=== PATIENT | male | born 1975 | race African-American/Black ===

== ENCOUNTER 2020-04-23 01:17 | Inpatient (IN) | payer MEDICARE, OTHER ==
[~2020-04-23] VITALS: Ht 167.6 cm; Wt 62.5 kg
--- NOTE | 2020-04-23 01:25 | NUR ---
ED Nurse Note: Patient brought into ED by from [facility] c/o hematuria. patient presents with germain. changed into gown; attached to monitor. patient ao3; aphasic; communicates through head nodding. able to move upper extremities. sacral wound noted; photographed and uploaded. all safety measures met.
[2020-04-23 01:30] VITALS: BP 120/80
--- NOTE | 2020-04-23 01:30 | NUR ---
ED Nurse Note: iv access established. blood urine mrsa vre cre swab collected; sent down to lab.
[2020-04-23] MEDS ORDERED: ASPIRIN81 MG ORAL (01:33)
[2020-04-23] MEDS ORDERED: BACLOFEN10 MG ORAL (01:34)
[2020-04-23] MEDS ORDERED: CARVEDILOL25 MG ORAL (01:35)
[2020-04-23] MEDS ORDERED: CHLORTHALIDONE25 MG ORAL (01:35)
[2020-04-23] MEDS ORDERED: DOCUSATE SODIU100 MG ORAL (01:36)
[2020-04-23] MEDS ORDERED: DULCOLAX10 MG RC (01:37)
[2020-04-23] MEDS ORDERED: IBUPROFEN600 M1 ORAL (01:38)
[2020-04-23] MEDS ORDERED: LIPITOR20 MG ORAL (01:38)
[2020-04-23] MEDS ORDERED: MILK OF MA400 MG/51 ORAL (01:39)
[2020-04-23] MEDS ORDERED: NITROFURANTOIN100 M2 ORAL (01:39)
[2020-04-23] MEDS ORDERED: MULTIVITAMINS1 EAC8 ORAL (01:40)
[2020-04-23] MEDS ORDERED: MIRALAX17 G2 ORAL (01:40)
[2020-04-23] MEDS ORDERED: NORCO 10-325 T1 EACH ORAL (01:41)
[2020-04-23] MEDS ORDERED: NORCO 5-325 TA1 EAC1 ORAL (01:41)
[2020-04-23] MEDS ORDERED: PRO-STAT LIQUID30 ML ORAL (01:42)
[2020-04-23] MEDS ORDERED: MIRTAZAPINE30 MG ORAL (01:43)
[2020-04-23] MEDS ORDERED: TRAMADOL HCL50 MG ORAL (01:44)
[2020-04-23] MEDS ORDERED: VITAMIN C 250250 MG PO (01:45)
--- NOTE | 2020-04-23 01:48 | Emergency Room Report ---
History of Present Illness General Chief Complaint: Male Urogenital Problems Source: Medical Record, EMS Present Illness HPI This is a 45-year-old male with a history of paraplegia, chronic pain syndrome and chronic Gaviria. He presents with chief complaint of hematuria. Onset tonigh t. There is gross hematuria. Nursing staff also stated that his pain is out of control. Here patient is calm and not screaming in pain. He does have a chronic Gaviria with gross hematuria. Unable to get any other history since patient is aphasic. History is from the snf note. There is no reported fever or chills. According to snf note, he is also started on Macrobid. Allergies: Coded Allergies: No Known Allergies (Unverified , 04/23/20) COVID-19 Screening Contact w/high risk pt: No Experienced COVID-19 symptoms?: No COVID-[address] SCIENTIST: Yes - 12/2019 COVID-19 Screening: Negative COVID-19 COVID-19 Testing Source: [facility] Patient History Past Medical History: see triage record, old chart reviewed Past Surgical History: other Pertinent Family History: none Social History: Denies: smoking Immunizations: other Reviewed Nursing Documentation: PMH: Agreed; PSxH: Agreed Nursing Documentation-PMH Past Medical History: No History, Except For Hx Hypertension: Yes Hx Diabetes: Yes - type 2 Review of Systems Genitourinary: Reports: hematuria All Other Systems: limited - Patient is aphasic Physical Exam Vital Signs Date Time Temp Pulse Resp B/P (MAP) Pulse Ox O2 Delivery O2 Flow Rate FiO2 04/23/20 01:19 97.9 80 15 120/80 (93) 98 Room Air Vitals normal Sp02 EP Interpretation: reviewed, normal General Appearance: well appearing, no apparent distress, alert Head: normocephalic, atraumatic Eyes: bilateral eye PERRL, bilateral eye EOMI ENT: hearing grossly normal, normal pharynx Neck: full range of motion, supple, no meningismus Respiratory: chest non-tender, lungs clear, normal breath sounds Cardiovascular #1: regular rate, rhythm, no murmur Gastrointestinal: normal bowel sounds, non tender, no mass, no organomegaly, no bruit, non-distended Genitourinary: other - Gaviria with gross hematuria Musculoskeletal: back normal Psychiatric: mood/affect normal Medical Decision Making Diagnostic Impression: Primary Impression: Complicated UTI (urinary tract infection) Additional Impressions: Gross hematuria Paraplegia ER Course This is a patient has paraplegia and chronic Gaviria. He presents with chief complaint of gross hematuria. Urinalysis show infection. Antibiotics given. I replaced the Gaviria and put in a three-way catheter. It irrigated to clear. CT scan pending. He was on antibiotic as an outpatient. Will admit for IV antibiotics. CT/MRI/US Diagnostic Results CT/MRI/US Diagnostic Results : Imaging Test Ordered: CT abdomen pelvis Impression Read by radiologist. Constipation. Decubital ulcer. Postoperative changes. Last Vital Signs Date Time Temp Pulse Resp B/P (MAP) Pulse Ox O2 Delivery O2 Flow Rate FiO2 04/23/20 01:19 97.9 80 15 120/80 (93) 98 Room Air Status: improved Disposition: ADMITTED INPATIENT Condition: Serious Referrals: Joao Lancaster MD (PCP) Samuel Hernandez MD Apr 23, 2020 01:48
--- NOTE | 2020-04-23 02:00 | NUR ---
ED Nurse Note: per ermd order previous germain removed. inserted 3way; irrigated. pt presents with gross hematuria
[2020-04-23 02:04] LABS: APPEARANCE,URINE CLOUDY; BILIRUBIN, URINE NEGATIVE (NEGATIVE); COLOR,URINE RED; GLUCOSE, URINE (UA) NEGATIVE (NEGATIVE); KETONES,URINE 1+ (NEGATIVE); LEUKOCYTE ESTERASE ,URINE 1+ (NEGATIVE); NITRITE,URINE NEGATIVE (NEGATIVE); PH,URINE 7 (4.5-8.0); PROTEIN,URINE 4+ (NEGATIVE); UROBILINOGEN,URINE NORMAL MG/DL (0.0-1.0)
[2020-04-23 02:07] LABS: BASOPHILS % (AUTO) 1.2 % (0.0-2.0); EOSINOPHILS % (AUTO) 3.4 % (0.0-3.0); HEMATOCRIT 43.7 % (42.0-52.0); HEMOGLOBIN 14.7 G/DL (14.2-18.0); LYMPHOCYTES % (AUTO) 23.2 % (20.0-45.0); MEAN CORPUSCULAR VOLUME 87 FL (80-99); MONOCYTES % (AUTO) 7.2 % (1.0-10.0); NEUTROPHILS % (AUTO) 64.9 % (45.0-75.0); PLATELET COUNT 239 K/UL (150-450); RED BLOOD COUNT 5.04 M/UL (4.70-6.10); RED CELL DISTRIBUTION WIDTH 12.4 % (11.6-14.8); WHITE BLOOD COUNT 7.9 K/UL (4.8-10.8)
[2020-04-23 02:16] LABS: ANION GAP 6 mmol/L (5-15); BLOOD UREA NITROGEN 19 mg/dL (7-18); CALCIUM 9.2 MG/DL (8.5-10.1); CARBON DIOXIDE 33 MMOL/L (21-32); CHLORIDE 99 MMOL/L (98-107); CREATININE 1.3 MG/DL (0.55-1.30); SODIUM 138 MMOL/L (136-145)
[2020-04-23 02:19] LABS: ALANINE AMINOTRANSFERASE 18 U/L (12-78); ALBUMIN 3.1 G/DL (3.4-5.0); ALBUMIN/GLOBULIN RATIO 0.7 (1.0-2.7); ALKALINE PHOSPHATASE 85 U/L (46-116); ASPARTATE AMINO TRANSFERASE 29 U/L (15-37); BILIRUBIN,TOTAL 0.2 MG/DL (0.2-1.0)
[2020-04-23] MEDS ORDERED: Morphine Sulfate 4mg/ml Inj (IV USE ONLY) IVP ONE (02:30)
[2020-04-23] MEDS ORDERED: cefTRIAXone 1 GM in NS 55 ML IVPB ONE (02:30)
--- NOTE | 2020-04-23 02:34 | NUR ---
ED Nurse Note: patient down to imaging via gurney with tool maintenance technician
[2020-04-23 03:00] VITALS: BP 121/79
--- NOTE | 2020-04-23 03:19 | NUR ---
ED Nurse Note: drained 3 liters of blood tinged urine from germain bag.
[2020-04-23] MEDS ORDERED: Morphine Sulfate 4mg/ml Inj (IV USE ONLY) IVP PRN (03:30)
--- NOTE | 2020-04-23 03:37 | Diagnostic Imaging Report ---
EXAM: CT Abdomen and Pelvis Without Intravenous Contrast CLINICAL HISTORY: BLD TECHNIQUE: Axial computed tomography images of the abdomen and pelvis without intravenous contrast. CTDI is 4.8 mGy and DLP is 244.2 mGy-cm. One or more of the following dose reduction techniques were used: automated exposure control, adjustment of the mA and/or kV according to patient size, use of iterative reconstruction technique. COMPARISON: No relevant prior studies available. FINDINGS: Lung bases: Unremarkable. No mass. No consolidation. ABDOMEN: Liver: Unremarkable. Gallbladder and bile ducts: Unremarkable. No calcified stones. No ductal dilation. Pancreas: Unremarkable. No ductal dilation. Spleen: Unremarkable. No splenomegaly. Adrenals: Unremarkable. No mass. 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 The left kidney demonstrates compensatory hypertrophy with mild-moderate hydronephrosis. Stomach and bowel: Large volume stool in the rectal vault, measuring up to 8.8 cm, consistent with fecal impaction. Associated mild circumferential wall thickening of the rectum and distal sigmoid colon consistent with mild stercoral colitis. No perforation. Mild perirectal induration. Associated, moderate fecal retention. PELVIS: Appendix: No findings to suggest acute appendicitis. Bladder: Gaviria catheter within a decompressed, severely thickened urinary bladder measuring at least 1 cm in thickness. Evaluation limited as the bladder is decompressed and there is no contrast. No stones. Reproductive: Unremarkable as visualized. ABDOMEN and PELVIS: Intraperitoneal space: Unremarkable. No free air. No significant fluid collection. Bones/joints: Status post open reduction internal fixation of the left femur with a reverse intramedullary nail and proximal interlocking screw. Degenerative changes of the spine with dysplasia the lumbar spine and sacrum. No acute fracture. No dislocation. Soft tissues: Severe skin thickening with subcutaneous induration and large soft tissue ulceration throughout the inferior right gluteal soft tissues/medial proximal thigh soft tissues, consistent with high-grade decubitus ulcer. This should be correlated with physical exam and wound care. Vasculature: Unremarkable. No abdominal aortic aneurysm. Lymph nodes: Unremarkable. No enlarged lymph nodes. Other findings: Hyperdensity within the spinal canal, correlate for surgical intervention/inadvertent material. IMPRESSION: 1. Large volume stool in the rectal vault, measuring up to 8.8 cm, consistent with fecal impaction. Associated mild circumferential wall thickening of the rectum and distal sigmoid colon consistent with mild stercoral colitis. No perforation. Mild perirectal induration. Associated, moderate fecal retention. 2. Gaviria catheter within a decompressed, severely thickened urinary bladder measuring at least 1 cm in thickness. Evaluation limited as the bladder is decompressed and there is no contrast. 3. Status post right nephrectomy and suspected right adrenalectomy. The left kidney demonstrates compensatory hypertrophy with mild-moderate hydronephrosis. 4. Severe skin thickening with subcutaneous induration and large soft tissue ulceration throughout the inferior right gluteal soft tissues/medial proximal thigh soft tissues, consistent with high-grade decubitus ulcer. This should be correlated with physical exam and wound care. 5. Status post open reduction internal fixation of the left femur with a reverse intramedullary nail and proximal interlocking screw. 6. Hyperdensity within the spinal canal, correlate for surgical intervention/inadvertent material.
--- NOTE | 2020-04-23 03:40 | NUR ---
TRANSFER TO FLOOR: Patient transferred to MED SURG 406-1 as ordered, per LORENA VICTOR. Report given to GABRIELLE SCHMITZ. PATIENT STABLE FOR TRANSPORT. TRANSFERRED TO UNIT VIA GURNEY WITH 2 RN. BELONGINGS AND ADMISSION PACKET SENT WITH PATIENT.
--- NOTE | 2020-04-23 04:00 | NUR ---
NURSE NOTES: Received patient per laura accompanied by ER staffs. patient is awake and alert but aphasic.paraplegia. he nods and moans. on room air. no sob. with iv line on the left wrist,saline lock. with 3 way germain catheter with pink colored output with minimal blood clots. per violet RN, "she hand irrigated the germain prior to admission". wound assessment done and pictures taken. received orders from ED. bed locked and in lowest position. bed alarm on. call light and light button within easy reach. will continue plan of care.
--- NOTE | 2020-04-23 04:15 | NUR ---
NURSE NOTES: Patient screams. went to the room. patient nods that he's in pain. morphine 4mg ivp given in ED [address] webb for breakthrough and orders. per dr. webb" no breakthrough and he will take care of the orders in the morning". charge nurse made aware.
--- NOTE | 2020-04-23 06:35 | NUR ---
NURSE HAND-OFF: Important Events on Shift:ADMISSION, JADE CARE Patient Status: STABLE Diet: REGULAR DIET Pending Orders: PENDINGORDER FOR ADMISSION Pending Results/Labs: Pending MD notification:PENDING ORDER FOR ADMISSION AND JADE CARE Latest Vital Signs: Temperature 97.9 , Pulse 78 , B/P 119 /73 , Respiratory Rate 17 , O2 SAT 97 , Room Air, O2 Flow Rate . Vital Sign Comment: Latest Bennett Fall Score: 70 Fall Risk: High Risk Safety Measures: Call light Within Reach, Bed Alarm Zone 1, Side Rails Side Rails x2, Bed position Low and Locked. Fall Precautions: Yellow Socks Yellow Gown Door Sign Patient Fall Education
--- NOTE | 2020-04-23 07:51 | NUR ---
HAND-OFF: Report given to amaya mckeon.
[2020-04-23 08:00] VITALS: BP 119/70
--- NOTE | 2020-04-23 09:53 | NUR ---
CHARGE NURSE NOTE: Pt was admitted on precision lens technician 4am. Pt is in pain. No admission orders since 4 am. was called, message left. Awaiting response.
[2020-04-23] MEDS: Morphine Sulfate 2mg/ml Inj(IV/IM USE ONLY) IVP PRN ×2 (10:15→17:47)
[2020-04-23 12:00] VITALS: BP 121/83
[2020-04-23] MEDS: HYDROcodone/Acetamin 5/325 tab ORAL PRN (13:12)
--- NOTE | 2020-04-23 15:39 | NUR ---
CASE MANAGEMENT:INITIAL REVIEW 45 YR OLD MALE BIBA FROM [facility] CC;MALE UROGENITAL PROBLEMS SI;COMPLICATED UTI. GROSS HEMATURIA. 97.9 80 19 121/79 97% ON RA CO2 33 BUN 19 ALB 3.1 UA+ PROTEIN, KETONES, BLOOD, LEUKOCYTE ESTERASE, BACTERIA ABD/PELVIS CT ~ Gaviria catheter within a decompressed, severely thickened urinary bladder measuring at least 1 cm in thickness. Evaluation limited as the bladder is decompressed and there is no contrast. Status post right nephrectomy and suspected right adrenalectomy. The left kidney demonstrates compensatory hypertrophy with mild-moderate hydronephrosis. IS;ROCEPHIN IV MORPHINE IV IVF NS BOLUS ADMITTED TO MED SURG MED SURG STATUS DCP;FROM [facility]
[2020-04-23] MEDS: Piperacillin/Tazobactam 3.375 GM in NS 110 ML IVPB SCH ×2 (15:45→20:56)
[2020-04-23 16:00] VITALS: BP 100/65
--- NOTE | 2020-04-23 19:00 | NUR ---
NURSE HAND-OFF: Important Events on Shift: patient keep yelling all day and complains of pain 04/07 Patient Status: stable/ full code Diet: soft diet Pending Orders: Pending Results/Labs:am labs Pending MD notification: Latest Vital Signs: Temperature 97.4 , Pulse 83 , B/P 100 /65 , Respiratory Rate 18 , O2 SAT 98 , Room Air, O2 Flow Rate . Vital Sign Comment: stable Latest Bennett Fall Score: 70 Fall Risk: High Risk Safety Measures: Call light Within Reach, Bed Alarm Zone 1, Side Rails Side Rails x2, Bed position Low and Locked. Fall Precautions: Yellow Socks Door Sign Patient Fall Education Report given to Radha SCHMITZ, pt in stable condition.
--- NOTE | 2020-04-23 19:48 | NUR ---
NURSE NOTES: Received patient awake, paraplegic, having hematuria, yells without provocation.
[2020-04-23] MEDS: LORazepam 1mg tab ORAL PRN (20:21)
[2020-04-23 20:28] VITALS: BP 128/75
--- NOTE | 2020-04-23 20:30 | Consultation ---
DATE OF CONSULTATION: 04/23/2020 CONSULTING PHYSICIAN: Santos Mccarty MD. REFERRING PHYSICIAN: Joao Lancaster MD. REASON FOR CONSULTATION: Evaluation of hematuria and UTI. HISTORY OF PRESENT ILLNESS: This is a 45-year-old male. He has a history of paraplegia, chronic pain, and chronic Gaviria. He came in the hospital because of hematuria. Apparently, his catheter was exchanged in the ER. He had a three-way catheter placed, but he has not been on CBI. Urology evaluation is requested. Most of the history was obtained from the chart. PAST MEDICAL HISTORY: Significant for paraplegia, hypertension, diabetes. SURGICAL HISTORY: Unknown. MEDICATIONS: Current medication list was reviewed. ALLERGIES: No known drug allergies. PHYSICAL EXAMINATION: VITAL SIGNS: Temperature is 97.4, blood pressure . GENITOURINARY: Gaviria in place. Urine is blood tinged. LABORATORY DATA: BUN 19, creatinine 1.3. White count 7.9, hemoglobin 14.7. UA showed 4+ protein, too numerous to count rbc's, 2 to 4 wbc's, and moderate bacteria. DIAGNOSTIC IMAGING STUDIES: The patient had a CT scan of the abdomen and pelvis. There was mention of Gaviria catheter in bladder with severely thickened bladder wall, history of right nephrectomy, and compensatory hypertrophy of left kidney with mild to moderate hydronephrosis of the left side. IMPRESSION: 1. Hematuria. 2. Pyuria, probably colonized. 3. Proteinuria. 4. Urinary retention. 5. Neurogenic bladder. 6. Hydronephrosis, which appears to be chronic. PLAN AND DISCUSSION: The patient's Gaviria catheter is indwelling. The nursing staff had irrigated it. It is draining fairly well. His renal function is stable at this time with normal creatinine. He does have a solitary kidney with mild to moderate hydronephrosis and I presume this is chronic secondary to reflux and can be monitored. We will follow up on the results of any cultures and he is to continue with antibiotics as ordered. He can have a cystoscopy electively at a later time. Thanks for this consultation. Santos Mccarty M.D. DR: LEAH JOB#: [id number] CC:
[2020-04-24] VITALS (7 sets, daily range): BP systolic 112–141; BP diastolic 60–97
[2020-04-24] MEDS: Piperacillin/Tazobactam 3.375 GM in NS 110 ML IVPB SCH ×3 (05:03→21:16)
[2020-04-24] MEDS: LORazepam 1mg tab ORAL PRN (05:47)
[2020-04-24] MEDS: HYDROcodone/Acetamin 5/325 tab ORAL PRN (05:47)
--- NOTE | 2020-04-24 06:45 | NUR ---
NURSE NOTES: Patient pulled out his IV access, tried to reinsert another IV access but failed.
--- NOTE | 2020-04-24 06:52 | NUR ---
HAND-OFF: Report given to Xavier Gonsalez RN.
--- NOTE | 2020-04-24 07:25 | NUR ---
NURSE NOTES: Received patient in bed,awake. 3 way germain noted with bloody urine without clots. RN irrigated germain properly as ordered. Will continue to monitor. Patient is calm @ this time. No IV.Will follow up. Bed is in lowest position and locked. Call light and personnel items within reach. Body assessment done, lung sound is clear, wound dressings are intact. Will continue plan of care.
--- NOTE | 2020-04-24 08:00 | NUR ---
NURSE NOTES: germain was changed by Dr. Mccarty to regular germain. RN assisted @ bedside. Will continue to monitor.
--- NOTE | 2020-04-24 08:22 | Urology Progress Note ---
Assessment/Plan Assessment/Plan: 1. Hematuria. 2. Pyuria, probably colonized. 3. Proteinuria. 4. Urinary retention. 5. Neurogenic bladder. 6. Hydronephrosis, which appears to be chronic. monitor clinically existing germain not draining well I personally removed old germain gently dilated and placed new 18f germain irrigated better watch abx as ordered f/u on any cx's cysto electively Subjective Allergies: Coded Allergies: No Known Allergies (Unverified , 04/23/20) Subjective all noted, germain hand irrigated Objective Last 24 Hour Vital Signs Date Time Temp Pulse Resp B/P (MAP) Pulse Ox O2 Delivery O2 Flow Rate FiO2 04/24/20 06:17 75 18 134/87 98 04/24/20 06:17 97.4 04/24/20 05:47 75 18 134/87 98 04/24/20 04:00 98.0 90 20 141/97 (112) 100 04/24/20 00:14 97.4 75 18 134/87 (103) 98 04/23/20 20:55 79 18 128/75 98 04/23/20 20:28 98.0 79 18 128/75 (92) 98 04/23/20 20:21 83 18 100/65 98 04/23/20 19:58 Room Air 04/23/20 18:17 97.4 04/23/20 16:00 97.4 83 18 100/65 (77) 98 04/23/20 13:42 97.6 04/23/20 12:00 97.6 76 18 121/83 (96) 97 04/23/20 10:45 97.9 04/23/20 09:00 Room Air Intake and Output 04/23/20 04/24/20 19:00 07:00 Intake Total 600 ml 947.5 ml Output Total 1000 ml 1400 ml Balance -400 ml -452.5 ml Intake IV Total 947.5 ml Other 600 ml Output Urine Total 1000 ml 1400 ml Current Medications Medications (Trade) Dose Ordered Sig/Kathie Route PRN Reason Start Time Stop Time Status Last Admin Dose Admin Acetaminophen/ Hydrocodone Bitart ([place] 5/325) 1 tab Q4H PRN ORAL Moderate Pain (Pain Scale 4-6) 04/23/20 13:15 04/30/20 13:14 04/24/20 05:47 Escitalopram Oxalate (Lexapro) 10 mg DAILY ORAL 04/24/20 09:00 05/24/20 08:59 Lorazepam (Ativan) 2 mg Q6H PRN ORAL For Anxiety 04/23/20 14:45 04/30/20 14:44 04/24/20 05:47 Morphine Sulfate (Morphine Sulfate) 2 mg Q6H PRN IVP Severe Pain (Pain Scale 7-10) 04/23/20 10:15 04/30/20 10:14 04/23/20 17:47 Piperacillin Sod/ Tazobactam Sod 3.375 gm/Sodium Chloride 110 ml @ 27.5 mls/hr Q8H IVPB 04/23/20 15:00 04/30/20 14:59 04/24/20 05:03 Risperidone (RisperDAL) 2 mg BEDTIME ORAL 04/23/20 21:00 06/07/20 20:59 04/23/20 20:21 Sodium Chloride 1,000 ml @ 100 mls/hr Q10H IV 04/23/20 13:15 05/23/20 13:14 04/23/20 13:45 Height (Feet): 5 Height (Inches): 6.00 Weight (Pounds): 132 Objective exam stable urine is blood-tinged Santos Mccarty MD Apr 24, 2020 08:22
--- NOTE | 2020-04-24 08:51 | NUR ---
NURSE NOTES: Gaviria is draining jessica colored urine without leaking or blood clots. Will continue to monitor.
--- NOTE | 2020-04-24 09:02 | Consultation ---
History of Present Illness General Date patient seen: Apr 24, 2020 Chief Complaint: Present Illness Allergies: Coded Allergies: No Known Allergies (Unverified , 04/23/20) Medication History Scheduled Amino Acids/Protein Hydrolys (Pro-Stat Liquid), 30 ML ORAL THREE TIMES A DAY, (Reported) Ascorbic Acid/Ascorbate Sodium (Vitamin C 250 mg Tablet Chew), 250 MG PO TWICE A DAY, (Reported) Aspirin* (Aspirin*), 81 MG ORAL DAILY, (Reported) Atorvastatin Calcium* (Lipitor*), 20 MG ORAL BEDTIME, (Reported) Baclofen* (Baclofen*), 5 MG ORAL Q8HR, (Reported) Bisacodyl (Dulcolax), 10 MG RC DAILY, (Reported) Carvedilol* (Carvedilol*), 25 MG ORAL EVERY 12 HOURS, (Reported) Chlorthalidone* (Chlorthalidone*), 25 MG ORAL DAILY, (Reported) Docusate Sodium* (Docusate Sodium*), 100 MG ORAL DAILY, (Reported) Ibuprofen* (Motrin*), 600 MG ORAL FOUR TIMES A DAY, (Reported) Magnesium Hydroxide* (Milk Of Magnesia*), 30 ML ORAL DAILY, (Reported) Mirtazapine* (Remeron*), 30 MG ORAL BEDTIME, (Reported) Multivitamin With Minerals (Multivitamins With Minerals*), 1 TAB ORAL DAILY, (Reported) Nitrofurantoin Monohyd/M-Cryst* (Macrobid 100 Mg*), 100 MG ORAL EVERY 12 HOURS, (Reported) Polyethylene Glycol 3350* (Miralax*), 17 GM ORAL DAILY, (Reported) Scheduled PRN Hydrocodone Bit/Acetaminophen 10-325* ([place] 10-325*), 1 TAB ORAL Q6H PRN for For Pain, (Reported) Hydrocodone Bit/Acetaminophen 5-325* ([place] 5-325 Tablet*), 1 TAB ORAL Q6H PRN for FOR PAIN, (Reported) Tramadol Hcl* (Ultram*), 50 MG ORAL Q6H PRN for For Pain, (Reported) Patient History Healthcare decision maker Resuscitation status Advanced Directive on File Physical Exam Last 24 Hour Vital Signs Date Time Temp Pulse Resp B/P (MAP) Pulse Ox O2 Delivery O2 Flow Rate FiO2 04/24/20 06:17 75 18 134/87 98 04/24/20 06:17 97.4 04/24/20 05:47 75 18 134/87 98 04/24/20 04:00 98.0 90 20 141/97 (112) 100 04/24/20 00:14 97.4 75 18 134/87 (103) 98 04/23/20 20:55 79 18 128/75 98 04/23/20 20:28 98.0 79 18 128/75 (92) 98 04/23/20 20:21 83 18 100/65 98 04/23/20 19:58 Room Air 04/23/20 18:17 97.4 04/23/20 16:00 97.4 83 18 100/65 (77) 98 04/23/20 13:42 97.6 04/23/20 12:00 97.6 76 18 121/83 (96) 97 04/23/20 10:45 97.9 04/23/20 09:00 Room Air Intake and Output 04/23/20 04/24/20 19:00 07:00 Intake Total 600 ml 947.5 ml Output Total 1000 ml 1400 ml Balance -400 ml -452.5 ml Intake IV Total 947.5 ml Other 600 ml Output Urine Total 1000 ml 1400 ml Height (Feet): 5 Height (Inches): 6.00 Weight (Pounds): 132 Medications Current Medications Medications (Trade) Dose Ordered Sig/Kathie Route PRN Reason Start Time Stop Time Status Last Admin Dose Admin Acetaminophen/ Hydrocodone Bitart ([place] 5/325) 1 tab Q4H PRN ORAL Moderate Pain (Pain Scale 4-6) 04/23/20 13:15 04/30/20 13:14 04/24/20 05:47 Escitalopram Oxalate (Lexapro) 10 mg DAILY ORAL 04/24/20 09:00 05/24/20 08:59 04/24/20 08:46 Lorazepam (Ativan) 2 mg Q6H PRN ORAL For Anxiety 04/23/20 14:45 04/30/20 14:44 04/24/20 05:47 Morphine Sulfate (Morphine Sulfate) 2 mg Q6H PRN IVP Severe Pain (Pain Scale 7-10) 04/23/20 10:15 04/30/20 10:14 04/23/20 17:47 Piperacillin Sod/ Tazobactam Sod 3.375 gm/Sodium Chloride 110 ml @ 27.5 mls/hr Q8H IVPB 04/23/20 15:00 04/30/20 14:59 04/24/20 05:03 Risperidone (RisperDAL) 2 mg BEDTIME ORAL 04/23/20 21:00 06/07/20 20:59 04/23/20 20:21 Sodium Chloride 1,000 ml @ 100 mls/hr Q10H IV 04/23/20 13:15 05/23/20 13:14 04/23/20 13:45 Assessment/Plan Assessment/Plan: (1) Paraplegia (2) Sacral decubitus ulcer (3) Sacral pain seen dictated Guero Jean-Baptiste Apr 24, 2020 09:02
--- NOTE | 2020-04-24 09:15 | Consultation ---
DATE OF CONSULTATION: 04/23/2020 This is a 45-year-old black male with a history of opiate dependence, paraplegia, pressure ulcers, UTI, who has been for medical stabilization. The patient is refusing to talk during the evaluation. However, at times, he screams and yells, asking for pain medication. The patient continues to be psychotic, at times catatonic. He is nodding his head. PAST PSYCHIATRIC HISTORY: He denies any psychiatric hospitalization. PAST MEDICAL HISTORY: Hypertension, . ALLERGIES: No known drug allergies. SUBSTANCE ABUSE HISTORY: He is dependent on opiate pain medication. MENTAL STATUS EXAMINATION: The patient is alert, unable to communicate and evaluate him for mental status. He does my question. ASSESSMENT: [place] I Psychotic disorder, not otherwise specified. Depressive disorder, rule out opiate pain medication dependence. [place] II Deferred. [place] III As above. [place] IV Low. [place] V 25 PLAN: 1. We will start the patient on Lexapro 10 mg in the morning. 2. Risperidone 2 mg at bedtime. 3. Provide the patient with reality orientation and supportive therapy. Susan Meza M.D. DR: JUVENAL JOB#: [id number] CC:
--- NOTE | 2020-04-24 09:15 | History and Physical Report ---
DATE OF ADMISSION: 04/23/2020 HISTORY OF PRESENT ILLNESS: This is a 45-year-old male who came to the emergency room for having paraplegia, gross hematuria, complicated UTI, dehydration, depression, psychosis. Patient was also noted to have probably inguinal hernia. Patient is currently in bed, intractable pain, was given morphine. Surgery consult was obtained. Patient is currently awake. Has been not eating. PAST MEDICAL HISTORY: Significant for paraplegia, sacral decubiti, and depression. MEDICATIONS: He is taking Tylenol, vitamin C, aspirin, Lipitor, baclofen, bisacodyl, carvedilol, chlorthalidone, ibuprofen, and Remeron. ALLERGIES: NKA. FAMILY HISTORY: Noncontributory. SOCIAL HISTORY: Lives at the longterm, mostly bedbound. REVIEW OF SYSTEMS: Generalized weakness. Patient is unable to give history. PHYSICAL EXAMINATION: VITAL SIGNS: Blood pressure 100/65, pulse 83, respirations 18, temperature 97.4. HEENT: Eyes are open. NECK: Supple. CHEST: Bilaterally clear. CARDIOVASCULAR: Regular rhythm. SKIN: Dry. ABDOMEN: Soft. Has left possible inguinal hernia. GENITOURINARY: Deferred. LABORATORY AND DIAGNOSTIC DATA: White count 7.9, hemoglobin 15, hematocrit 44. Chemistry panel, BUN 19, creatinine 1.3. Sodium 138, potassium 4. Urine, 1+ ketone, 5+ blood, 1+ leukocyte esterase, and TNTC. Imaging, patient has abdominal CT and pelvis showing large volume stool in the rectal vault. Fecal impaction and circumferential volume and thickening of the rectum colitis. No perforation. Gaviria catheter . He is status post right nephrectomy, status post right adrenalectomy, severe skin thickening , large tissues, status post open reduction and internal fixation, left femur intramedullary nail. Hyperdensity within material. ASSESSMENT: 1. UTI. 2. Hematuria. 3. Hernia. 4. Severe malnutrition. 5. History of fracture of the femur. 6. Depression. PLAN: We will admit him on medical floor. Patient was given Risperdal, Zosyn, lorazepam, and hydrocodone. Add IV fluid and morphine for pain. Consider pain management consult. Surgery consult. Carson Mark Lancaster DR: MORTEZA JOB#: [id number] CC:
--- NOTE | 2020-04-24 11:01 | NUR ---
RD ASSESSMENT & RECOMMENDATIONS SEE CARE ACTIVITY FOR COMPLETE ASSESSMENT DAILY ESTIMATED NEEDS: Needs based on Advanced wounds/ 58.5kg 30-35 kcals/kg 5415-0014 total kcals 1.5-2 g protein/kg 88-117 g total protein 25-30 mL/kg 4135-7481 total fluid mLs NUTRITION DIAGNOSIS: Increased kcal/prot needs R/T wound healing as evidenced by pt admitted w/ advanced wounds, including stage 4 @ R buttock, stage 3 @ R lateral foot, stage 2 @ sacrum. CURRENT DIET:SOFT PO DIET RECOMMENDATIONS: Liberalized regular/ texture per SUPERVISOR ELECTRIC MOTOR TESTING ADDITIONAL RECOMMENDATIONS: * Calibrated bedscale wt for accurate CBW * Ensure Enlive TID w/ meals added * Wound healing: Add MVI w/ min x 1, Vit C 500mg BID, ZnSO4 220mg [id number] Sebas 1pkt BID * Monitor PO intake: pt refusing meals at this time -> consider appetite stimulant * Monitor lytes, replete as needed Addendum: 04/24/20 at [address] Additional recs: * Check A1C: h/o DM noted, BGs wnl at this time. * Consider SUPERVISOR ELECTRIC MOTOR TESTING eval for appropriate texture: pt on [facility] soft diet CUSTOMER ENGINEER
--- NOTE | 2020-04-24 11:30 | Consultation ---
DATE OF CONSULTATION: 04/24/2020 PAIN MANAGEMENT CONSULTATION CONSULTING PHYSICIAN: Alana Monique M.D. REFERRING PHYSICIAN: Carson Lancaster M.D. PHYSICIAN POWER WOOD SAWYER: Thien Bishop CHIEF COMPLAINT: Sacral pain. HISTORY OF PRESENT ILLNESS: This is a 45-year-old male who is being seen on the Med\Surg floor of [facility] for initial pain management consultation. The patient was admitted under the care of Dr. Lancaster, from nursing facility due to hematuria. The patient is paraplegic and has indwelling catheter. At this time, the patient is in bed, nonverbal, no signs of pain or distress, was started on morphine 2 mg IV every 6 hours as needed for severe pain and Telferner 5/325 one tablet every 4 hours needed for moderate pain which seems to be helping the patient's with his discomfort. Nurses reports that patient does scream at times due to pain however patient also has underlying psychiatric issues. The patient is a poor historian. Most of the information was received from chart. PAST MEDICAL HISTORY: Paraplegia, bilateral ankle contractures, muscle wasting, diabetes mellitus, bipolar disorder, depression, hypertension, dysphagia, hyperlipidemia, convulsions, psychosis. SOCIAL HISTORY: Unknown. ALLERGIES: No known drug allergies MEDICATIONS: vitamin C, aspirin, Lipitor, baclofen, Dulcolax, carvedilol, chlorthalidone, docusate, Telferner, ibuprofen, magnesium, Remeron, Macrobid, MiraLAX, Ultram. REVIEW OF SYSTEMS: Unable to obtain due the patient's mental status. PHYSICAL EXAMINATION: GENERAL: Awake. VITAL SIGNS: Blood pressure 134/87, heart rate 75, oxygen saturation 98%, respiratory rate 18, temperature 98.4 degrees Fahrenheit. HEENT: PERRLA. NECK: Range of motion is full in all directions. No tenderness to paracervical muscles. No adenopathy. LUNGS: Decreased breath sounds bilaterally. HEART: Regular. ABDOMEN: Soft and nontender. BACK: Range of motion is decreased in flexion and extension. EXTREMITIES: Upper and lower extremity range of motion is decreased due to the patient's condition. No cyanosis. No clubbing. Sensory is reduced. Reflexes are not obtainable. No adenopathy. ASSESSMENT AND PLAN: The patient is a 45-year-old male with paraplegia, sacral decubitus ulcer, sacral pain. The patient will be continued on Telferner and morphine as needed. The patient was discussed with Dr. Monique and Dr. Monique concurred. We will follow the patient. Thank you very much for the courtesy of this consultation. Alana Monique M.D. ROBIN Bishop DR: Julian JOB#: [id number] CC:
--- NOTE | 2020-04-24 12:00 | NUR ---
CHARGE NURSE NOTE: Wound care nurse at the pt's bed with her operations administrative assistant. (wound care has performed right ischial st4, right lateral foot,sacral). Pt tolerated procedure well. P200 mattress applied to the pt's bed.
--- NOTE | 2020-04-24 12:35 | NUR ---
NURSE NOTES:Skin/wound assessment Right Ischial pressure ulcer stage 4 2.6x2.3x1.7 undermining 3to6 o'clock 90% pink muscle and granulation [id number]% yellow slough ,edges macerated. Thera Honey and optifoam applied.Sacral/coccyx pressure ulcer stage 2 0.8x0.4x0.2 pink tissue no drainage noted aga wound intact .Triad and Optifoam applied. Left buttock pressure ulcer stage 2 0.7x0.3x0.2 pink wound bed no drainage triad and optifoam applied.Right lateral foot pressure ulcer stage 2 2.0x2.1x0.2 wound bed pink scant serosanguineous drainage noted, aga wound dry flakey intact skin.Air mattress overlay placed on bed during assessment.Recommend physician wound consult .Discussed plan of care with RN taking care of the patient.
--- NOTE | 2020-04-24 13:23 | NUR ---
NURSE NOTES: 2 nurses tried IV but unable to get it. RN spoke to Guero and changed morphine IV to IM Q6hr PRN. Addendum: 04/24/20 at 1325 by ALVAREZ GARZA RN Patient complains of pain RN offered norco but Patient refused to take norco stating " It does not work."
[2020-04-24] MEDS ORDERED: Morphine Sulfate 2mg/ml Inj(IV/IM USE ONLY) IM PRN (13:24)
--- NOTE | 2020-04-24 14:30 | NUR ---
CASE MANAGEMENT:REVIEW SI;COMPLICATED UTI. HEMATURIA. PYURIA. HYDRONEPHROSIS. 98.1 90 20 141/97 98% ON RA IS;MORPHINE SULFATE IM Q6 PRN ZOSYN IV Q8 NORCO PO Q4 PRN LEXAPRO PO QD MED SURG STATUS DCP;FROM [facility]
--- NOTE | 2020-04-24 14:57 | Consultation ---
History of Present Illness General Date patient seen: Apr 24, 2020 Reason for Hospitalization: Male Urogenital Problems Present Illness HPI This is a 45-year-old male with a history of paraplegia, chronic pain syndrome and chronic Germain. He presents with chief complaint of hematuria for 1-2 days and notable is gross hematuria. Nursing staff also stated that his pain is out of control and he was asking for more pain medication. He does have a chronic Germain with gross hematuria. Unable to get any other history since patient is aphasic and only minimally responsive. History is from EMR. There is no reported fever or chills. According to correction note, he is also started on Macrobid. noted to have malnutrition, prior midline scar, abd pain, and decubitus ulcers. surgery called to evaluate. Allergies: Coded Allergies: No Known Allergies (Unverified , 04/23/20) COVID-19 Screening Contact w/high risk pt: No Experienced COVID-19 symptoms?: No Medication History Scheduled Amino Acids/Protein Hydrolys (Pro-Stat Liquid), 30 ML ORAL THREE TIMES A DAY, (Reported) Ascorbic Acid/Ascorbate Sodium (Vitamin C 250 mg Tablet Chew), 250 MG PO TWICE A DAY, (Reported) Aspirin* (Aspirin*), 81 MG ORAL DAILY, (Reported) Atorvastatin Calcium* (Lipitor*), 20 MG ORAL BEDTIME, (Reported) Baclofen* (Baclofen*), 5 MG ORAL Q8HR, (Reported) Bisacodyl (Dulcolax), 10 MG RC DAILY, (Reported) Carvedilol* (Carvedilol*), 25 MG ORAL EVERY 12 HOURS, (Reported) Chlorthalidone* (Chlorthalidone*), 25 MG ORAL DAILY, (Reported) Docusate Sodium* (Docusate Sodium*), 100 MG ORAL DAILY, (Reported) Ibuprofen* (Motrin*), 600 MG ORAL FOUR TIMES A DAY, (Reported) Magnesium Hydroxide* (Milk Of Magnesia*), 30 ML ORAL DAILY, (Reported) Mirtazapine* (Remeron*), 30 MG ORAL BEDTIME, (Reported) Multivitamin With Minerals (Multivitamins With Minerals*), 1 TAB ORAL DAILY, (Reported) Nitrofurantoin Monohyd/M-Cryst* (Macrobid 100 Mg*), 100 MG ORAL EVERY 12 HOURS, (Reported) Polyethylene Glycol 3350* (Miralax*), 17 GM ORAL DAILY, (Reported) Scheduled PRN Hydrocodone Bit/Acetaminophen 10-325* (Dolphin 10-325*), 1 TAB ORAL Q6H PRN for For Pain, (Reported) Hydrocodone Bit/Acetaminophen 5-325* (Dolphin 5-325 Tablet*), 1 TAB ORAL Q6H PRN for FOR PAIN, (Reported) Tramadol Hcl* (Ultram*), 50 MG ORAL Q6H PRN for For Pain, (Reported) Patient History Limited by: medical condition History Provided By: Patient, Medical Record, PMD Healthcare decision maker Resuscitation status Advanced Directive on File Past Medical/Surgical History Past Medical/Surgical History: (1) Paraplegia (2) Gross hematuria (3) Complicated UTI (urinary tract infection) (4) Pressure ulcer (5) Psychiatric follow-up Review of Systems Review of Symptoms General ROS: no weight loss or fever Psychological ROS: no depression or mood changes, no memory loss Ophthalmic ROS: no visual changes or eye irritation ENT ROS: no nasal congestion, hearing loss, dizziness Allergy and Immunology ROS: no allergic symptoms or urticaria Hematological and Lymphatic ROS: no swollen glands, unusual bleeding or bruising Endocrine ROS: no polyuria, polydipsia, weight changes, temperature intolerance Respiratory ROS: no cough, shortness of breath, or wheezing Cardiovascular ROS: no chest pain or dyspnea on exertion Gastrointestinal ROS: denies abdominal pain, bright red blood in stool. Musculoskeletal ROS: no myalgias or arthralgias Neurological ROS: no TIA or stroke symptoms Dermatological ROS: no new or changing skin lesions, rashes or pruritis Physical Exam Physical Exam General appearance: alert, cooperative, no distress, appears stated age Head: Normocephalic, without obvious abnormality, atraumatic Eyes: conjunctivae/corneas clear. PERRL, EOM's intact. Fundi benign Throat: Lips, mucosa, and tongue normal. Teeth and gums normal Neck: supple, symmetrical, trachea midline, no adenopathy, thyroid: not enlarged, symmetric, no tenderness/mass/nodules, no carotid bruit and no JVD Lungs: clear to auscultation bilaterally Heart: regular rate and rhythm, S1, S2 normal, no murmur, click, rub or gallop Abdomen: soft, non-tender. Bowel sounds normal. No masses, no organomegaly Extremities: extremities normal, atraumatic, no cyanosis or edema Pulses: 2+ and symmetric Skin: Skin see below Neurologic: Grossly normal Last 24 Hour Vital Signs Date Time Temp Pulse Resp B/P (MAP) Pulse Ox O2 Delivery O2 Flow Rate FiO2 04/24/20 12:00 97.4 82 18 136/76 (96) 100 04/24/20 09:00 Room Air 04/24/20 08:00 98.1 66 18 137/83 (101) 100 04/24/20 06:17 75 18 134/87 98 04/24/20 06:17 97.4 04/24/20 05:47 75 18 134/87 98 04/24/20 04:00 98.0 90 20 141/97 (112) 100 04/24/20 00:14 97.4 75 18 134/87 (103) 98 04/23/20 20:55 79 18 128/75 98 04/23/20 20:28 98.0 79 18 128/75 (92) 98 04/23/20 20:21 83 18 100/65 98 04/23/20 19:58 Room Air 04/23/20 18:17 97.4 04/23/20 16:00 97.4 83 18 100/65 (77) 98 Intake and Output 04/23/20 04/24/20 19:00 07:00 Intake Total 600 ml 947.5 ml Output Total 1000 ml 1400 ml Balance -400 ml -452.5 ml Intake IV Total 947.5 ml Other 600 ml Output Urine Total 1000 ml 1400 ml Height (Feet): 5 Height (Inches): 6.00 Weight (Pounds): 132 Medications Current Medications Medications (Trade) Dose Ordered Sig/Kathie Route PRN Reason Start Time Stop Time Status Last Admin Dose Admin Acetaminophen/ Hydrocodone Bitart (Dolphin 5/325) 1 tab Q4H PRN ORAL Moderate Pain (Pain Scale 4-6) 04/23/20 13:15 04/30/20 13:14 04/24/20 05:47 Escitalopram Oxalate (Lexapro) 10 mg DAILY ORAL 04/24/20 09:00 05/24/20 08:59 04/24/20 08:46 Lorazepam (Ativan) 2 mg Q6H PRN ORAL For Anxiety 04/23/20 14:45 04/30/20 14:44 04/24/20 05:47 Morphine Sulfate (Morphine Sulfate) 2 mg Q6H PRN IM Severe Pain (Pain Scale 7-10) 04/24/20 13:24 05/01/20 13:23 04/24/20 13:42 Piperacillin Sod/ Tazobactam Sod 3.375 gm/Sodium Chloride 110 ml @ 27.5 mls/hr Q8H IVPB 04/23/20 15:00 04/30/20 14:59 04/24/20 05:03 Risperidone (RisperDAL) 2 mg BEDTIME ORAL 04/23/20 21:00 06/07/20 20:59 04/23/20 20:21 Sodium Chloride 1,000 ml @ 100 mls/hr Q10H IV 04/23/20 13:15 05/23/20 13:14 04/23/20 13:45 Assessment/Plan Problem List: (1) Pressure ulcer Assessment & Plan: Patient identified to have multiple skin concerns upon admission. he is awake and only somewhat responsive as he chooses to be. not cooperative with exam. Right Ischial pressure ulcer stage 4 noted 2.6x2.3x1.7 undermining 3to6 o'clock 90% pink muscle and granulation % yellow slough ,edges macerated. . Tx plan: Thera Honey and optifoam daily. Sacral/coccyx pressure ulcer stage 2 0.8x0.4x0.2 pink tissue no drainage noted aga wound intact Tx plan: Triad and Optifoam change q3 days and prn. Left buttock pressure ulcer stage 2 0.7x0.3x0.2 pink wound bed no drainage Tx plan: triad and optifoam change q3 days Right lateral foot pressure ulcer stage 2 2.0x2.1x0.2 wound bed pink scant serosanguineous drainage noted, aga wound dry flakey intact skin. Tx plan: triad and optifoam change q3 days Air mattress overlay placed on bed during assessment. nutritional optimization turn q2h will follow with recs thank you DAILY ESTIMATED NEEDS: Needs based on Advanced wounds/ 58.5kg 30-35 kcals/kg 6116-4950 total kcals 1.5-2 g protein/kg 88-117 g total protein 25-30 mL/kg 4012-1210 total fluid mLs NUTRITION DIAGNOSIS: Increased kcal/prot needs R/T wound healing as evidenced by pt admitted w/ advanced wounds, including stage 4 @ R buttock, stage 3 @ R lateral foot, stage 2 @ sacrum. CURRENT DIET:SOFT PO DIET RECOMMENDATIONS: Liberalized regular/ texture per SONOGRAPHY TECHNICIAN ADDITIONAL RECOMMENDATIONS: * Calibrated bedscale wt for accurate CBW * Ensure Enlive TID w/ meals added * Wound healing: Add MVI w/ min x 1, Vit C 500mg BID, ZnSO4 220mg [id number] Sebas 1pkt BID * Monitor PO intake: pt refusing meals at this time -> consider appetite stimulant * Monitor lytes, replete as needed ICD Codes: L89.90 - Pressure ulcer of unspecified site, unspecified stage SNOMED: 860232856 (2) Paraplegia ICD Codes: G82.20 - Paraplegia, unspecified SNOMED: 81669904 (3) Psychiatric follow-up ICD Codes: Z09 - Encounter for follow-up examination after completed treatment for conditions other than malignant neoplasm; Z86.59 - Personal history of other mental and behavioral disorders SNOMED: 54769333, 554658682, 551112185, 724109785 (4) Gross hematuria Assessment & Plan: as per urology germain changed cont monitor abx as per pcp ICD Codes: R31.0 - Gross hematuria SNOMED: 798900917 (5) Complicated UTI (urinary tract infection) ICD Codes: N39.0 - Urinary tract infection, site not specified SNOMED: 60565188 Parker Burr Apr 24, 2020 14:57
--- NOTE | 2020-04-24 15:20 | NUR ---
NURSE NOTES: obtained peripheral IV access on left upper arm with G22.
--- NOTE | 2020-04-24 15:58 | General Progress Note ---
Subjective Allergies: Coded Allergies: No Known Allergies (Unverified , 04/23/20) Subjective c/o hematuria bed ridden Objective Last 24 Hour Vital Signs Date Time Temp Pulse Resp B/P (MAP) Pulse Ox O2 Delivery O2 Flow Rate FiO2 04/24/20 12:00 97.4 82 18 136/76 (96) 100 04/24/20 09:00 Room Air 04/24/20 08:00 98.1 66 18 137/83 (101) 100 04/24/20 06:17 75 18 134/87 98 04/24/20 06:17 97.4 04/24/20 05:47 75 18 134/87 98 04/24/20 04:00 98.0 90 20 141/97 (112) 100 04/24/20 00:14 97.4 75 18 134/87 (103) 98 04/23/20 20:55 79 18 128/75 98 04/23/20 20:28 98.0 79 18 128/75 (92) 98 04/23/20 20:21 83 18 100/65 98 04/23/20 19:58 Room Air 04/23/20 18:17 97.4 04/23/20 16:00 97.4 83 18 100/65 (77) 98 Intake and Output 04/23/20 04/24/20 19:00 07:00 Intake Total 600 ml 947.5 ml Output Total 1000 ml 1400 ml Balance -400 ml -452.5 ml Intake IV Total 947.5 ml Other 600 ml Output Urine Total 1000 ml 1400 ml Height (Feet): 5 Height (Inches): 6.00 Weight (Pounds): 132 General Appearance: alert Neck: supple Cardiovascular: normal rate, regular rhythm Respiratory/Chest: normal breath sounds Abdomen: non tender, soft Assessment/Plan Assessment/Plan: hematuria uti paraplegia agitation urology eval cont iv abx ivf Joao Lancaster MD Apr 24, 2020 15:58
[2020-04-24] MEDS: Ascorbic Acid 500mg tab ORAL SCH (17:04)
[2020-04-24] MEDS ORDERED: NS Irrig 1000ml ONE (17:35)
--- NOTE | 2020-04-24 18:23 | NUR ---
NURSE NOTES: RN irrigated germain Q4hrs, still noted with hematuria. germain is draining.
--- NOTE | 2020-04-24 18:29 | NUR ---
NURSE HAND-OFF: Important Events on Shift: germain was changed by Dr. whitehead, still with hematuria Patient Status: stable Diet: soft diet Pending Orders: Pending Results/Labs: Pending MD notification: Latest Vital Signs: Temperature 98.8 , Pulse 81 , B/P 129 /80 , Respiratory Rate 19 , O2 SAT 96 , Room Air, O2 Flow Rate . Vital Sign Comment: Latest Bennett Fall Score: 70 Fall Risk: High Risk Safety Measures: Call light Within Reach, Bed Alarm Zone 1, Side Rails Side Rails x2, Bed position Low and Locked. Fall Precautions: Yellow Socks Door Sign Patient Fall Education Report given to Soumya and endorsed plan of care.
--- NOTE | 2020-04-24 19:21 | NUR ---
NURSE NOTES: Received patient comfortably sleeping, with indwelling germain catheter, still with hematuria.
[2020-04-24] MEDS: Morphine Sulfate 2mg/ml Inj(IV/IM USE ONLY) IVP PRN (21:16)
--- NOTE | 2020-04-25 03:00 | NUR ---
NURSE NOTES: Received patient in bed, screaming c/o pain. Will medicate as prescribed. Noted FC with gross hematuria; irrigated as ordered, clots seen. Will monitor.
[2020-04-25] MEDS: Morphine Sulfate 2mg/ml Inj(IV/IM USE ONLY) IVP PRN ×4 (03:16→21:49)
[2020-04-25 04:00] VITALS: BP 118/62
--- NOTE | 2020-04-25 04:40 | NUR ---
NURSE NOTES: Patient screamed in pain again c/o pain on his bladder. Gaviria irrigated with 40cc h2o multiple times (approx. six times) until no clots is seen. Patient verbalized relief. Will continue monitor.
--- NOTE | 2020-04-25 05:30 | NUR ---
NURSE NOTES: Right ischium wound changed and tolerated well.
[2020-04-25] MEDS: Piperacillin/Tazobactam 3.375 GM in NS 110 ML IVPB SCH ×3 (06:10→23:38)
--- NOTE | 2020-04-25 06:45 | NUR ---
NURSE NOTES: Patient was screaming in pain and asked for pain medication; pain medication still not due. Offered to irrigate germain to get rid of clots that is causing him pain, patient refused and kept demanding the pain medication. Attempted to educate patient regarding irrigating germain can relieve pain but patient still refused.
--- NOTE | 2020-04-25 07:18 | NUR ---
NURSE HAND-OFF: Important Events on Shift:[Hand irrigated multiple times, multiple clots,still hematuria. given pain medication. wound care] Patient Status: [stable, still hematuria] Diet: [soft diet] Pending Orders: [] Pending Results/Labs:[] Pending MD notification:[] Latest Vital Signs: Temperature 98.5 , Pulse 100 , B/P 118 /62 , Respiratory Rate 18 , O2 SAT 97 , Room Air, O2 Flow Rate . Vital Sign Comment: [] Latest Bennett Fall Score: 70 Fall Risk: High Risk Safety Measures: Call light Within Reach, Bed Alarm Zone 1, Side Rails Side Rails x2, Bed position Low and Locked. Fall Precautions: Yellow Socks Door Sign Patient Fall Education Report given to [Ivanna Sabillon RN].
--- NOTE | 2020-04-25 07:31 | NUR ---
NURSE NOTES: Patient awake, alert x4; on room air, no sing of distress and shortness of breath; no sing of chest pain; IV Left-For arm fluid and anti biotics runs; Gaviria in place, hematuria noticed, will flush as needed; side rails up x2, breaks engaged, bed at lowest position, call light within reach; will keep monitoring.
[2020-04-25 08:00] VITALS: BP 146/96
[2020-04-25] MEDS: Ascorbic Acid 500mg tab ORAL SCH ×3 (08:20→17:26)
[2020-04-25] MEDS: Zinc Sulfate 220mg ORAL SCH ×2 (08:20→08:31)
--- NOTE | 2020-04-25 08:31 | NUR ---
NURSE NOTES: After medications Vitamin C, Katey Sulfate, Multiple Vitamin and Lexapro, pulled out of Pexisn and prepra
--- NOTE | 2020-04-25 08:33 | NUR ---
NURSE NOTES: After medication, Vitamin C, Multi vitamin, Katey sulfate and Lexapro pulled out of pexis and prepared to give it to patient; patient refused to take it; medication wasted and witnessed by AINSLEY Montana;
--- NOTE | 2020-04-25 08:36 | NUR ---
NURSE NOTES: Gaviria flushed with 50cc Steril water, patient is in pain during flushing; will keep flushing and control the pain.
--- NOTE | 2020-04-25 08:38 | General Progress Note ---
Subjective Date patient seen: Apr 25, 2020 Time patient seen: 07:45 - am ROS Limited/Unobtainable: Yes Allergies: Coded Allergies: No Known Allergies (Unverified , 04/23/20) Subjective This is a 45 y/o male being seen on the Med/surg floor of [facility] In bed no signs of pain or distress. Non verbal. Objective Last 24 Hour Vital Signs Date Time Temp Pulse Resp B/P (MAP) Pulse Ox O2 Delivery O2 Flow Rate FiO2 04/25/20 04:00 98.5 100 18 118/62 (80) 97 04/25/20 03:46 98.4 04/24/20 23:48 98.4 102 18 112/60 (77) 97 04/24/20 21:45 98.1 04/24/20 20:02 Room Air 04/24/20 19:59 98.1 100 18 120/72 (88) 97 04/24/20 16:00 98.8 81 19 129/80 (96) 96 04/24/20 12:00 97.4 82 18 136/76 (96) 100 04/24/20 09:00 Room Air Intake and Output 04/24/20 04/25/20 19:00 07:00 Intake Total 382.5 ml 1237.5 ml Output Total 400 ml 1000 ml Balance -17.5 ml 237.5 ml Intake IV Total 382.5 ml 1237.5 ml Output Urine Total 400 ml 1000 ml # Voids 1 Height (Feet): 5 Height (Inches): 6.00 Weight (Pounds): 132 General Appearance: no apparent distress EENT: PERRL/EOMI Neck: non-tender Cardiovascular: normal rate Respiratory/Chest: decreased breath sounds Abdomen: tender Extremities: non-tender Edema: trace edema Neurologic: other - awake Assessment/Plan Assessment/Plan: (1) Paraplegia (2) Sacral decubitus ulcer (3) Sacral pain Patient to be continued on [place] and Morphine D/w Dr. Monique and he concurred. Guero Jean-Baptiste Apr 25, 2020 08:38
[2020-04-25 08:43] LABS: BASOPHILS % (AUTO) 1.7 % (0.0-2.0); EOSINOPHILS % (AUTO) 5.2 % (0.0-3.0); HEMATOCRIT 35.8 % (42.0-52.0); HEMOGLOBIN 11.6 G/DL (14.2-18.0); LYMPHOCYTES % (AUTO) 26.5 % (20.0-45.0); MEAN CORPUSCULAR VOLUME 87 FL (80-99); MONOCYTES % (AUTO) 8.4 % (1.0-10.0); NEUTROPHILS % (AUTO) 58.2 % (45.0-75.0); PLATELET COUNT 350 K/UL (150-450); RED BLOOD COUNT 4.11 M/UL (4.70-6.10); RED CELL DISTRIBUTION WIDTH 12.5 % (11.6-14.8); WHITE BLOOD COUNT 8.2 K/UL (4.8-10.8)
--- NOTE | 2020-04-25 08:44 | NUR ---
NURSE NOTES: Patient was seen by Guero KELLY of Dr. Monique for pain management. turfgrass technician asked to Guero if he can change frequency of morphine 2mg IVP Q6hrs PRN to Q4hrs since patient complains of bladder pain and screams sometimes asking for pain meds and refused to take norco stating norco does not work for him. Guero declined to change the frequency and RN was told to encourage patient to take norco. Will continue to monitor.
--- NOTE | 2020-04-25 09:05 | Urology Progress Note ---
Assessment/Plan Assessment/Plan: 1. Hematuria. 2. Pyuria, probably colonized. 3. Proteinuria. 4. Urinary retention. 5. Neurogenic bladder. 6. Hydronephrosis, which appears to be chronic. monitor clinically maintain germain, placed 04/24 hand irrigated and do PRN watch abx as ordered cysto electively Subjective Allergies: Coded Allergies: No Known Allergies (Unverified , 04/23/20) Subjective all noted, germain hand irrigated Objective Last 24 Hour Vital Signs Date Time Temp Pulse Resp B/P (MAP) Pulse Ox O2 Delivery O2 Flow Rate FiO2 04/25/20 04:00 98.5 100 18 118/62 (80) 97 04/25/20 03:46 98.4 04/24/20 23:48 98.4 102 18 112/60 (77) 97 04/24/20 21:45 98.1 04/24/20 20:02 Room Air 04/24/20 19:59 98.1 100 18 120/72 (88) 97 04/24/20 16:00 98.8 81 19 129/80 (96) 96 04/24/20 12:00 97.4 82 18 136/76 (96) 100 Intake and Output 04/24/20 04/25/20 19:00 07:00 Intake Total 382.5 ml 1237.5 ml Output Total 400 ml 1000 ml Balance -17.5 ml 237.5 ml Intake IV Total 382.5 ml 1237.5 ml Output Urine Total 400 ml 1000 ml # Voids 1 Microbiology Date/Time Source Procedure Growth Status 04/23/20 01:30 Rectum - Final NO CARBAPENEM-RESISTANT ENTEROBACTERI... Complete 04/23/20 01:30 Urine,Clean Catch Urine Culture - Final NO GROWTH AFTER 48 HOURS Complete 04/23/20 01:30 Nasal Nares MRSA Culture - Final NO METHICILLIN RESISTANT STAPH AUREUS... Complete Current Medications Medications (Trade) Dose Ordered Sig/Kathie Route PRN Reason Start Time Stop Time Status Last Admin Dose Admin Acetaminophen/ Hydrocodone Bitart ([place] 5/325) 1 tab Q4H PRN ORAL Moderate Pain (Pain Scale 4-6) 04/23/20 13:15 04/30/20 13:14 04/24/20 05:47 Ascorbic Acid (Vitamin C) 500 mg TWICE A DAY ORAL 04/24/20 18:00 05/24/20 17:59 04/24/20 17:04 Escitalopram Oxalate (Lexapro) 10 mg DAILY ORAL 04/24/20 09:00 05/24/20 08:59 04/24/20 08:46 Lorazepam (Ativan) 2 mg Q6H PRN ORAL For Anxiety 04/23/20 14:45 04/30/20 14:44 04/24/20 05:47 Morphine Sulfate (Morphine Sulfate) 2 mg Q6H PRN IVP Severe Pain (Pain Scale 7-10) 04/24/20 16:15 05/01/20 16:14 04/25/20 03:16 Multivitamins (Multivitamins) 1 tab DAILY ORAL 04/25/20 09:00 05/25/20 08:59 Piperacillin Sod/ Tazobactam Sod 3.375 gm/Sodium Chloride 110 ml @ 27.5 mls/hr Q8H IVPB 04/23/20 15:00 04/30/20 14:59 04/25/20 06:10 Risperidone (RisperDAL) 2 mg BEDTIME ORAL 04/23/20 21:00 06/07/20 20:59 04/24/20 20:30 Sodium Chloride 1,000 ml @ 100 mls/hr Q10H IV 04/23/20 13:15 05/23/20 13:14 04/25/20 01:58 Zinc Sulfate (Zinc Sulfate) 220 mg DAILY ORAL 04/25/20 09:00 05/05/20 08:59 Laboratory Tests 04/25/20 08:15: White Blood Count 8.2, Red Blood Count 4.11L, Hemoglobin 11.6L, Hematocrit 35.8L , Mean Corpuscular Volume 87, Mean Corpuscular Hemoglobin 28.2, Mean Corpuscular Hemoglobin Concent 32.4, Red Cell Distribution Width 12.5, Platelet Count 350, Mean Platelet Volume 6.0L, Neutrophils (%) (Auto) 58.2, Lymphocytes (%) (Auto) 26.5, Monocytes (%) (Auto) 8.4, Eosinophils (%) (Auto) 5.2H, Basophils (%) (Auto) 1.7, Sodium Level [Pending], Potassium Level [Pending], Chloride Level [Pending], Carbon Dioxide Level [Pending], Blood Urea Nitrogen [Pending], Creatinine [Pending], Estimat Glomerular Filtration Rate [Pending], Glucose Level [Pending], Calcium Level [Pending], Total Bilirubin [Pending], Aspartate Amino Transf (AST/SGOT) [Pending], Alanine Aminotransferase (ALT/SGPT) [Pending], Alkaline Phosphatase [Pending], Total Protein [Pending], Albumin [Pending], Globulin [Pending] Height (Feet): 5 Height (Inches): 6.00 Weight (Pounds): 132 Objective exam stable urine is blood-tinged Santos Mccarty MD Apr 25, 2020 09:05
[2020-04-25 09:31] LABS: ALANINE AMINOTRANSFERASE 14 U/L (12-78); ALBUMIN 2.6 G/DL (3.4-5.0); ALBUMIN/GLOBULIN RATIO 0.8 (1.0-2.7); ALKALINE PHOSPHATASE 70 U/L (46-116); ANION GAP 10 mmol/L (5-15); ASPARTATE AMINO TRANSFERASE 19 U/L (15-37); BILIRUBIN,TOTAL 0.3 MG/DL (0.2-1.0); BLOOD UREA NITROGEN 12 mg/dL (7-18); CARBON DIOXIDE 29 MMOL/L (21-32); CHLORIDE 103 MMOL/L (98-107); CREATININE 1.1 MG/DL (0.55-1.30); SODIUM 141 MMOL/L (136-145)
--- NOTE | 2020-04-25 09:31 | General Progress Note ---
Subjective Allergies: Coded Allergies: No Known Allergies (Unverified , 04/23/20) Subjective c/o hematuria bed ridden Objective Last 24 Hour Vital Signs Date Time Temp Pulse Resp B/P (MAP) Pulse Ox O2 Delivery O2 Flow Rate FiO2 04/25/20 08:00 98.1 83 19 146/96 (113) 98 04/25/20 04:00 98.5 100 18 118/62 (80) 97 04/25/20 03:46 98.4 04/24/20 23:48 98.4 102 18 112/60 (77) 97 04/24/20 21:45 98.1 04/24/20 20:02 Room Air 04/24/20 19:59 98.1 100 18 120/72 (88) 97 04/24/20 16:00 98.8 81 19 129/80 (96) 96 04/24/20 12:00 97.4 82 18 136/76 (96) 100 Intake and Output 04/24/20 04/25/20 19:00 07:00 Intake Total 382.5 ml 1237.5 ml Output Total 400 ml 1000 ml Balance -17.5 ml 237.5 ml Intake IV Total 382.5 ml 1237.5 ml Output Urine Total 400 ml 1000 ml # Voids 1 Laboratory Tests 04/25/20 08:15: White Blood Count 8.2, Red Blood Count 4.11L, Hemoglobin 11.6L, Hematocrit 35.8L , Mean Corpuscular Volume 87, Mean Corpuscular Hemoglobin 28.2, Mean Corpuscular Hemoglobin Concent 32.4, Red Cell Distribution Width 12.5, Platelet Count 350, Mean Platelet Volume 6.0L, Neutrophils (%) (Auto) 58.2, Lymphocytes (%) (Auto) 26.5, Monocytes (%) (Auto) 8.4, Eosinophils (%) (Auto) 5.2H, Basophils (%) (Auto) 1.7, Sodium Level [Pending], Potassium Level [Pending], Chloride Level [Pending], Carbon Dioxide Level [Pending], Blood Urea Nitrogen [Pending], Creatinine [Pending], Estimat Glomerular Filtration Rate [Pending], Glucose Level [Pending], Calcium Level [Pending], Total Bilirubin [Pending], Aspartate Amino Transf (AST/SGOT) [Pending], Alanine Aminotransferase (ALT/SGPT) [ Pending], Alkaline Phosphatase [Pending], Total Protein [Pending], Albumin [Pending], Globulin [Pending] Height (Feet): 5 Height (Inches): 6.00 Weight (Pounds): 132 General Appearance: alert Cardiovascular: regular rhythm Respiratory/Chest: lungs clear Pelvis: other - germain cath with hematuria Assessment/Plan Assessment/Plan: hematuria uti paraplegia agitation urology eval cont iv abx ivf Joao Lancaster MD Apr 25, 2020 09:31
--- NOTE | 2020-04-25 10:39 | NUR ---
NURSE NOTES: Patient's K 3; communicated MD Lancaster, waiting for order.
--- NOTE | 2020-04-25 11:20 | NUR ---
NURSE NOTES: Order received from MD Lancaster for low potassium level; 40 mEq KcL one time order received and carried out as order given;
[2020-04-25 12:00] VITALS: BP 103/54
[2020-04-25] MEDS ORDERED: Sterile Water Irrig 1000ml IRRIG ONE (13:09)
--- NOTE | 2020-04-25 15:46 | Surgery Progress Note ---
Surgery Progress Note Subjective Symptoms: worse, tolerating diet, voiding well, passing flatus, BM Objective Last 24 Hour Vital Signs Date Time Temp Pulse Resp B/P (MAP) Pulse Ox O2 Delivery O2 Flow Rate FiO2 04/25/20 12:00 97.3 77 18 103/54 (70) 96 04/25/20 10:07 98.1 04/25/20 09:00 Room Air 04/25/20 08:00 98.1 83 19 146/96 (113) 98 04/25/20 04:00 98.5 100 18 118/62 (80) 97 04/25/20 03:46 98.4 04/24/20 23:48 98.4 102 18 112/60 (77) 97 04/24/20 21:45 98.1 04/24/20 20:02 Room Air 04/24/20 19:59 98.1 100 18 120/72 (88) 97 04/24/20 16:00 98.8 81 19 129/80 (96) 96 I&O Intake and Output 04/24/20 04/25/20 19:00 07:00 Intake Total 382.5 ml 1337.5 ml Output Total 400 ml 1000 ml Balance -17.5 ml 337.5 ml Intake IV Total 382.5 ml 1337.5 ml Output Urine Total 400 ml 1000 ml # Voids 1 Dressing: saturated Cardiovascular: RSR Respiratory: decreased breath sounds Abdomen: non-tender, present bowel sounds Extremities: no edema, no tenderness Laboratory Tests Test 04/25/20 08:15 White Blood Count 8.2 K/UL (4.8-10.8) Red Blood Count 4.11 M/UL (4.70-6.10) L Hemoglobin 11.6 G/DL (14.2-18.0) L Hematocrit 35.8 % (42.0-52.0) L Mean Corpuscular Volume 87 FL (80-99) Mean Corpuscular Hemoglobin 28.2 PG (27.0-31.0) Mean Corpuscular Hemoglobin Concent 32.4 G/DL (32.0-36.0) Red Cell Distribution Width 12.5 % (11.6-14.8) Platelet Count 350 K/UL (150-450) Mean Platelet Volume 6.0 FL (6.5-10.1) L Neutrophils (%) (Auto) 58.2 % (45.0-75.0) Lymphocytes (%) (Auto) 26.5 % (20.0-45.0) Monocytes (%) (Auto) 8.4 % (1.0-10.0) Eosinophils (%) (Auto) 5.2 % (0.0-3.0) H Basophils (%) (Auto) 1.7 % (0.0-2.0) Sodium Level 141 MMOL/L (136-145) Potassium Level 3.0 MMOL/L (3.5-5.1) L Chloride Level 103 MMOL/L (98-107) Carbon Dioxide Level 29 MMOL/L (21-32) Anion Gap 10 mmol/L (5-15) Blood Urea Nitrogen 12 mg/dL (7-18) Creatinine 1.1 MG/DL (0.55-1.30) Estimat Glomerular Filtration Rate > 60 mL/min (>60) Glucose Level 85 MG/DL (74-106) Calcium Level 8.0 MG/DL (8.5-10.1) L Total Bilirubin 0.3 MG/DL (0.2-1.0) Aspartate Amino Transf (AST/SGOT) 19 U/L (15-37) Alanine Aminotransferase (ALT/SGPT) 14 U/L (12-78) Alkaline Phosphatase 70 U/L (46-116) Total Protein 5.9 G/DL (6.4-8.2) L Albumin 2.6 G/DL (3.4-5.0) L Globulin 3.3 g/dL Albumin/Globulin Ratio 0.8 (1.0-2.7) L Plan Problems: (1) Pressure ulcer Assessment & Plan: Patient identified to have multiple skin concerns upon admission. he is awake and only somewhat responsive as he chooses to be. not cooperative with exam. Right Ischial pressure ulcer stage 4 noted 2.6x2.3x1.7 undermining 3to6 o'clock 90% pink muscle and granulation % yellow slough ,edges macerated. . Tx plan: Thera Honey and optifoam daily. Sacral/coccyx pressure ulcer stage 2 0.8x0.4x0.2 pink tissue no drainage noted aga wound intact Tx plan: Triad and Optifoam change q3 days and prn. Left buttock pressure ulcer stage 2 0.7x0.3x0.2 pink wound bed no drainage Tx plan: triad and optifoam change q3 days Right lateral foot pressure ulcer stage 2 2.0x2.1x0.2 wound bed pink scant serosanguineous drainage noted, aga wound dry flakey intact skin. Tx plan: triad and optifoam change q3 days Air mattress overlay placed on bed during assessment. nutritional optimization turn q2h will follow with recs thank you DAILY ESTIMATED NEEDS: Needs based on Advanced wounds/ 58.5kg 30-35 kcals/kg 4440-7938 total kcals 1.5-2 g protein/kg 88-117 g total protein 25-30 mL/kg 6798-3909 total fluid mLs NUTRITION DIAGNOSIS: Increased kcal/prot needs R/T wound healing as evidenced by pt admitted w/ advanced wounds, including stage 4 @ R buttock, stage 3 @ R lateral foot, stage 2 @ sacrum. CURRENT DIET:SOFT PO DIET RECOMMENDATIONS: Liberalized regular/ texture per GEAR SHAPER SET UP OPERATOR ADDITIONAL RECOMMENDATIONS: * Calibrated bedscale wt for accurate CBW * Ensure Enlive TID w/ meals added * Wound healing: Add MVI w/ min x 1, Vit C 500mg BID, ZnSO4 220mg [id number] Sebas 1pkt BID * Monitor PO intake: pt refusing meals at this time -> consider appetite stimulant * Monitor lytes, replete as needed (2) Paraplegia (3) Psychiatric follow-up (4) Gross hematuria Assessment & Plan: as per urology germain changed cont monitor abx as per pcp (5) Complicated UTI (urinary tract infection) Parker Burr Apr 25, 2020 15:46
[2020-04-25 16:00] VITALS: BP 104/76
--- NOTE | 2020-04-25 16:15 | NUR ---
CASE MANAGEMENT:REVIEW SI;HYDRONEPHROSIS. HEMATURIA. PYURIA. 98.4 100 19 149/96 96% ON RA K+ 3.0 ALB 2.6 IS;K-DUR PO ONC E ZINC SULFATE PO QD VIT C PO BID MORPHINE SULFATE IV Q6 PORN ZOSYN IV Q8 IVF NS @ 100 ML/HR MED SURF STATUS DCP;FROM [facility]
[2020-04-25] MEDS: HYDROcodone/Acetamin 5/325 tab ORAL PRN ×2 (18:29→18:31)
--- NOTE | 2020-04-25 18:32 | NUR ---
NURSE NOTES: Patient asked for pain medication; RN told patient that Morphine is not due yet and offered for [place] 5/325; patient agreed to take [place]; charge nurse Xavier pulled [place] and RN prepared to give medication to patient; patient refused to take [place] 5/325 and stated that "will wait for Morphine". Medication wasted on Pyxis and on medication waste at med room. Charge nurse is aware;
--- NOTE | 2020-04-25 18:55 | NUR ---
NURSE NOTES: Patient asked to be taken outside to smoke; RN explained that this is a non smoking hospital; charge nurseXavier is aware;
--- NOTE | 2020-04-25 18:59 | NUR ---
NURSE NOTES: I communicated INSURANCE SALESPERSON Zedner regarding the pain medication that patient on, Morphine 2 MG Q6H; patient is complaining of sever pain and asking INSURANCE SALESPERSON if INSURANCE SALESPERSON wanna change the frequency of Morphine 2 mg; waiting for order.
--- NOTE | 2020-04-25 19:10 | NUR ---
NURSE NOTES: I communicated SOCIAL WORK ASSOCIATE Bondner regarding patient's pain medication, Morphine Sulfate 2 mgQ6H; patient is complaining sever pain in between and screems a lot; patient doesn't want to take [place]; SOCIAL WORK ASSOCIATE stated that doesn't change the Morphine Sulfate 2 mg medications frequency; charge nurse Xavier is aware;
[2020-04-25] MEDS ORDERED: IBUPROFEN400 MG ORAL (19:28)
--- NOTE | 2020-04-25 19:48 | NUR ---
HAND-OFF: Report given to AINSLEY Estrada. Gaviria drains hematuria;
[2020-04-25 20:00] VITALS: BP 117/69
[2020-04-25] MEDS: Cyclobenzaprine 10mg Tab ORAL PRN (20:41)
--- NOTE | 2020-04-25 21:14 | NUR ---
NURSES NOTE: Pt in bed, A/OX4, quite combative disposition. Audible moaning from the hallway noted before completing assessment. Pt states he has pain in the groin, but refuses a [place] 5/325mg and states he will wait until time for Dilaudid shot is due. Breathing is even and unlabored on 1999 VS within normal limits. Gaviria in place, to be irrigated Q4-6H. Gross hematuria noted. IV site, patent, infusing IVF fluids without incident. Pt to be turned Q2H. All due medications will be administered. Bed at lowest level. Call light within reach. Pt will continue to be monitored. Addendum: 04/25/20 at 2128 by Ingrid Elam RN Pt waiting for Morphine 2mg shot IV push.
[2020-04-26] VITALS: BP 106/72
--- NOTE | 2020-04-26 02:50 | NUR ---
NURSE HAND-OFF: Important Events on Shift:[Pt refused to be turned or flushed via [address] germain before end of shift] Patient Status: [stable] Diet: [soft diet] Pending Orders: [none] Pending Results/Labs:[none] Pending MD notification:[none] Latest Vital Signs: Temperature 98.0 , Pulse 86 , B/P 106 /72 , Respiratory Rate 18 , O2 SAT 97 , Room Air, O2 Flow Rate . Vital Sign Comment: [Within normal limits] Latest Bennett Fall Score: 70 Fall Risk: High Risk Safety Measures: Call light Within Reach, Bed Alarm Zone 1, Side Rails Side Rails x2, Bed position Low and Locked. Fall Precautions: Yellow Socks Door Sign Patient Fall Education Report given to [AINSLEY Acuña].
--- NOTE | 2020-04-26 03:00 | NUR ---
NURSE NOTES: Received report from AINSLEY Quintero. Patient is awake, alert. Iv site noted, iv fluid is infusing. No complaint of pain or discomfort noted. Skin is warm, noted with multiple dressings. Patient refused to check dressing. call light is at bedside. Will continue of care.
[2020-04-26 04:00] VITALS: BP 104/58
[2020-04-26] MEDS: Morphine Sulfate 2mg/ml Inj(IV/IM USE ONLY) IVP PRN ×2 (04:41→10:41)
[2020-04-26] MEDS: Piperacillin/Tazobactam 3.375 GM in NS 110 ML IVPB SCH ×3 (06:03→21:59)
--- NOTE | 2020-04-26 07:08 | NUR ---
NURSE HAND-OFF: Important Events on Shift:Dressings changed Patient Status: dressing change, germain catheter flushed Diet: Soft Diet Pending Orders: Pending Results/Labs: Pending MD notification: Latest Vital Signs: Temperature 98.0 , Pulse 100 , B/P 104 /58 , Respiratory Rate 18 , O2 SAT 97 , Room Air, O2 Flow Rate . Vital Sign Comment: WNL Latest Bennett Fall Score: 70 Fall Risk: High Risk Safety Measures: Call light Within Reach, Bed Alarm Zone 1, Side Rails Side Rails x2, Bed position Low and Locked. Fall Precautions: Yellow Socks Door Sign Patient Fall Education Report given to Jaret De La Fuente.
--- NOTE | 2020-04-26 07:53 | NUR ---
NURSE NOTES: Received report from Domenico Burns RN. Patient in supine position, awake, drowsy, alert, respirations at 15 breaths per minute, bed in lowest position, call light within reach, side rails up x 3, IV patent in left upper arm, no c/o pain, no SOB, in no apparent distress.
[2020-04-26 08:00] VITALS: BP 114/68
--- NOTE | 2020-04-26 08:11 | Urology Progress Note ---
Assessment/Plan Assessment/Plan: 1. Hematuria. 2. Pyuria, probably colonized. 3. Proteinuria. 4. Urinary retention. 5. Neurogenic bladder. 6. Hydronephrosis, which appears to be chronic. monitor clinically maintain germain, placed 04/24 hand irrigated and do PRN watch abx as ordered cysto electively Subjective Allergies: Coded Allergies: No Known Allergies (Unverified , 04/23/20) Subjective all noted, germain hand irrigated Objective Last 24 Hour Vital Signs Date Time Temp Pulse Resp B/P (MAP) Pulse Ox O2 Delivery O2 Flow Rate FiO2 04/26/20 04:00 98.0 100 18 104/58 (73) 97 04/26/20 00:00 98.0 86 18 106/72 (83) 97 04/25/20 21:00 Room Air 04/25/20 20:00 98.7 86 17 117/69 (85) 96 04/25/20 16:09 97.3 04/25/20 16:00 98.1 103 18 104/76 (85) 95 04/25/20 12:00 97.3 77 18 103/54 (70) 96 04/25/20 10:07 98.1 04/25/20 09:00 Room Air Intake and Output 04/25/20 04/26/20 19:00 07:00 Intake Total 992.5 ml 1095.0 ml Output Total 900 ml 700 ml Balance 92.5 ml 395.0 ml Intake Oral 240 ml IV Total 992.5 ml 855.0 ml Output Urine Total 900 ml 700 ml # Voids 1 Microbiology Date/Time Source Procedure Growth Status 04/23/20 01:30 Rectum - Final NO CARBAPENEM-RESISTANT ENTEROBACTERI... Complete 04/23/20 01:30 Urine,Clean Catch Urine Culture - Final NO GROWTH AFTER 48 HOURS Complete 04/23/20 01:30 Nasal Nares MRSA Culture - Final NO METHICILLIN RESISTANT STAPH AUREUS... Complete Current Medications Medications (Trade) Dose Ordered Sig/Kathie Route PRN Reason Start Time Stop Time Status Last Admin Dose Admin Acetaminophen/ Hydrocodone Bitart ([place] 5/325) 1 tab Q4H PRN ORAL Moderate Pain (Pain Scale 4-6) 04/23/20 13:15 04/30/20 13:14 04/24/20 05:47 Ascorbic Acid (Vitamin C) 500 mg TWICE A DAY ORAL 04/24/20 18:00 05/24/20 17:59 04/25/20 17:26 Cyclobenzaprine HCl (Flexeril) 10 mg TIDPRN PRN ORAL Muscle Spasm 04/25/20 10:00 05/02/20 09:59 04/25/20 20:41 Escitalopram Oxalate (Lexapro) 10 mg DAILY ORAL 04/24/20 09:00 05/24/20 08:59 04/24/20 08:46 Lorazepam (Ativan) 2 mg Q6H PRN ORAL For Anxiety 04/23/20 14:45 04/30/20 14:44 04/24/20 05:47 Morphine Sulfate (Morphine Sulfate) 2 mg Q4H PRN IVP Severe Pain (Pain Scale 7-10) 04/26/20 01:30 05/03/20 01:29 04/26/20 04:41 Multivitamins (Multivitamins) 1 tab DAILY ORAL 04/25/20 09:00 05/25/20 08:59 Piperacillin Sod/ Tazobactam Sod 3.375 gm/Sodium Chloride 110 ml @ 27.5 mls/hr Q8H IVPB 04/23/20 15:00 04/30/20 14:59 04/26/20 06:03 Risperidone (RisperDAL) 2 mg BEDTIME ORAL 04/23/20 21:00 06/07/20 20:59 04/25/20 20:41 Sodium Chloride 1,000 ml @ 100 mls/hr Q10H IV 04/23/20 13:15 05/23/20 13:14 04/26/20 01:15 Zinc Sulfate (Zinc Sulfate) 220 mg DAILY ORAL 04/25/20 09:00 05/05/20 08:59 Laboratory Tests 04/25/20 08:15: White Blood Count 8.2, Red Blood Count 4.11L, Hemoglobin 11.6L, Hematocrit 35.8L , Mean Corpuscular Volume 87, Mean Corpuscular Hemoglobin 28.2, Mean Corpuscular Hemoglobin Concent 32.4, Red Cell Distribution Width 12.5, Platelet Count 350, Mean Platelet Volume 6.0L, Neutrophils (%) (Auto) 58.2, Lymphocytes (%) (Auto) 26.5, Monocytes (%) (Auto) 8.4, Eosinophils (%) (Auto) 5.2H, Basophils (%) (Auto) 1.7, Sodium Level 141, Potassium Level 3.0L, Chloride Level 103, Carbon Dioxide Level 29, Anion Gap 10, Blood Urea Nitrogen 12, Creatinine 1.1, Estimat Glomerular Filtration Rate > 60, Glucose Level 85, Calcium Level 8.0L, Total Bilirubin 0.3, Aspartate Amino Transf (AST/SGOT) 19, Alanine Aminotransferase (ALT/SGPT) 14, Alkaline Phosphatase 70, Total Protein 5.9L, Albumin 2.6L, Globulin 3.3, Albumin/Globulin Ratio 0.8L Height (Feet): 5 Height (Inches): 6.00 Weight (Pounds): 132 Objective exam stable urine is blood-tinged Santos Mccarty MD Apr 26, 2020 08:11
[2020-04-26] MEDS: Zinc Sulfate 220mg ORAL SCH ×2 (09:00→09:51)
[2020-04-26] MEDS: Ascorbic Acid 500mg tab ORAL SCH ×3 (09:00→18:40)
--- NOTE | 2020-04-26 09:11 | General Progress Note ---
Subjective Date patient seen: Apr 26, 2020 Time patient seen: 08:15 - am ROS Limited/Unobtainable: Yes Allergies: Coded Allergies: No Known Allergies (Unverified , 04/23/20) Subjective This is a 45 y/o male being seen on the Med/surg floor of [facility]. Patient has been in more pain yesterday and Morphine was changed to Q4H PRN. At this time no signs of pain or distress noted. Objective Last 24 Hour Vital Signs Date Time Temp Pulse Resp B/P (MAP) Pulse Ox O2 Delivery O2 Flow Rate FiO2 04/26/20 08:00 97.6 88 19 114/68 (83) 98 04/26/20 04:00 98.0 100 18 104/58 (73) 97 04/26/20 00:00 98.0 86 18 106/72 (83) 97 04/25/20 21:00 Room Air 04/25/20 20:00 98.7 86 17 117/69 (85) 96 04/25/20 16:09 97.3 04/25/20 16:00 98.1 103 18 104/76 (85) 95 04/25/20 12:00 97.3 77 18 103/54 (70) 96 04/25/20 10:07 98.1 Intake and Output 04/25/20 04/26/20 19:00 07:00 Intake Total 992.5 ml 1095.0 ml Output Total 900 ml 700 ml Balance 92.5 ml 395.0 ml Intake Oral 240 ml IV Total 992.5 ml 855.0 ml Output Urine Total 900 ml 700 ml # Voids 1 Height (Feet): 5 Height (Inches): 6.00 Weight (Pounds): 132 Objective General Appearance: no apparent distress EENT: PERRL/EOMI Neck: non-tender Cardiovascular: normal rate Respiratory/Chest: decreased breath sounds Abdomen: tender Extremities: non-tender Edema: trace edema Neurologic: other - awake Assessment/Plan Assessment/Plan: (1) Paraplegia (2) Sacral decubitus ulcer (3) Sacral pain Patient to be continued on [place] and Morphine D/w Dr. Monique and he concurred. Guero Jean-Baptiste Apr 26, 2020 09:10
--- NOTE | 2020-04-26 09:35 | General Progress Note ---
Subjective Allergies: Coded Allergies: No Known Allergies (Unverified , 04/23/20) Subjective c/o hematuria bed ridden more awake Objective Last 24 Hour Vital Signs Date Time Temp Pulse Resp B/P (MAP) Pulse Ox O2 Delivery O2 Flow Rate FiO2 04/26/20 08:00 97.6 88 19 114/68 (83) 98 04/26/20 04:00 98.0 100 18 104/58 (73) 97 04/26/20 00:00 98.0 86 18 106/72 (83) 97 04/25/20 21:00 Room Air 04/25/20 20:00 98.7 86 17 117/69 (85) 96 04/25/20 16:09 97.3 04/25/20 16:00 98.1 103 18 104/76 (85) 95 04/25/20 12:00 97.3 77 18 103/54 (70) 96 04/25/20 10:07 98.1 Intake and Output 04/25/20 04/26/20 19:00 07:00 Intake Total 992.5 ml 1095.0 ml Output Total 900 ml 700 ml Balance 92.5 ml 395.0 ml Intake Oral 240 ml IV Total 992.5 ml 855.0 ml Output Urine Total 900 ml 700 ml # Voids 1 Height (Feet): 5 Height (Inches): 6.00 Weight (Pounds): 132 General Appearance: alert Cardiovascular: normal rate Respiratory/Chest: lungs clear Abdomen: non tender, soft Assessment/Plan Assessment/Plan: hematuria uti paraplegia agitation urology eval cont iv abx ivf id Joao Davidson MD Apr 26, 2020 09:35
[2020-04-26 12:00] VITALS: BP 117/65
--- NOTE | 2020-04-26 13:00 | NUR ---
NURSE NOTES: Left message on voicemail of Dr. Alana Monique informing that patient is complaing about pain and requesting increase in pain medication.
--- NOTE | 2020-04-26 13:18 | Surgery Progress Note ---
Surgery Progress Note Subjective Symptoms: improved, tolerating diet, passing flatus Objective Last 24 Hour Vital Signs Date Time Temp Pulse Resp B/P (MAP) Pulse Ox O2 Delivery O2 Flow Rate FiO2 04/26/20 12:00 98.6 69 20 117/65 (82) 97 04/26/20 11:11 97.6 04/26/20 09:00 Room Air 04/26/20 08:00 97.6 88 19 114/68 (83) 98 04/26/20 04:00 98.0 100 18 104/58 (73) 97 04/26/20 00:00 98.0 86 18 106/72 (83) 97 04/25/20 21:00 Room Air 04/25/20 20:00 98.7 86 17 117/69 (85) 96 04/25/20 16:09 97.3 04/25/20 16:00 98.1 103 18 104/76 (85) 95 I&O Intake and Output 04/25/20 04/26/20 19:00 07:00 Intake Total 992.5 ml 1095.0 ml Output Total 900 ml 700 ml Balance 92.5 ml 395.0 ml Intake Oral 240 ml IV Total 992.5 ml 855.0 ml Output Urine Total 900 ml 700 ml # Voids 1 Dressing: dry Wound: clean Cardiovascular: RSR Respiratory: clear Abdomen: soft, non-tender, decreased bowel sounds Extremities: no edema, no tenderness, no cyanosis Plan Problems: (1) Pressure ulcer Assessment & Plan: Patient identified to have multiple skin concerns upon admission. he is awake and only somewhat responsive as he chooses to be. not cooperative with exam. Right Ischial pressure ulcer stage 4 noted 2.6x2.3x1.7 undermining 3to6 o'clock 90% pink muscle and granulation [id number]% yellow slough ,edges macerated. . Tx plan: Thera Honey and optifoam daily. Sacral/coccyx pressure ulcer stage 2 0.8x0.4x0.2 pink tissue no drainage noted aga wound intact Tx plan: Triad and Optifoam change q3 days and prn. Left buttock pressure ulcer stage 2 0.7x0.3x0.2 pink wound bed no drainage Tx plan: triad and optifoam change q3 days Right lateral foot pressure ulcer stage 2 2.0x2.1x0.2 wound bed pink scant serosanguineous drainage noted, aga wound dry flakey intact skin. Tx plan: triad and optifoam change q3 days Air mattress overlay placed on bed during assessment. nutritional optimization turn q2h will follow with recs thank you DAILY ESTIMATED NEEDS: Needs based on Advanced wounds/ 58.5kg 30-35 kcals/kg 6966-9012 total kcals 1.5-2 g protein/kg 88-117 g total protein 25-30 mL/kg 2702-3420 total fluid mLs NUTRITION DIAGNOSIS: Increased kcal/prot needs R/T wound healing as evidenced by pt admitted w/ advanced wounds, including stage 4 @ R buttock, stage 3 @ R lateral foot, stage 2 @ sacrum. CURRENT DIET:SOFT PO DIET RECOMMENDATIONS: Liberalized regular/ texture per CHILDCARE WORKER ADDITIONAL RECOMMENDATIONS: * Calibrated bedscale wt for accurate CBW * Ensure Enlive TID w/ meals added * Wound healing: Add MVI w/ min x 1, Vit C 500mg BID, ZnSO4 220mg [id number] Sebas 1pkt BID * Monitor PO intake: pt refusing meals at this time -> consider appetite stimulant * Monitor lytes, replete as needed (2) Paraplegia (3) Psychiatric follow-up (4) Gross hematuria Assessment & Plan: as per urology germain changed cont monitor abx as per pcp ABDOMEN: Liver: Unremarkable. Gallbladder and bile ducts: Unremarkable. No calcified stones. No ductal dilation. Pancreas: Unremarkable. No ductal dilation. Spleen: Unremarkable. No splenomegaly. Adrenals: Unremarkable. No mass. 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 The left kidney demonstrates compensatory hypertrophy with mild-moderate hydronephrosis. Stomach and bowel: Large volume stool in the rectal vault, measuring up to 8.8 cm, consistent with fecal impaction. Associated mild circumferential wall thickening of the rectum and distal sigmoid colon consistent with mild stercoral colitis. No perforation. Mild perirectal induration. Associated, moderate fecal retention. PELVIS: Appendix: No findings to suggest acute appendicitis. Bladder: Germain catheter within a decompressed, severely thickened urinary bladder measuring at least 1 cm in thickness. Evaluation limited as the bladder is decompressed and there is no contrast. No stones. Reproductive: Unremarkable as visualized. ABDOMEN and PELVIS: Intraperitoneal space: Unremarkable. No free air. No significant fluid collection. Bones/joints: Status post open reduction internal fixation of the left femur with a reverse intramedullary nail and proximal interlocking screw. Degenerative changes of the spine with dysplasia the lumbar spine and sacrum. No acute fracture. No dislocation. Soft tissues: Severe skin thickening with subcutaneous induration and large soft tissue ulceration throughout the inferior right gluteal soft tissues/medial proximal thigh soft tissues, consistent with high-grade decubitus ulcer. This should be correlated with physical exam and wound care. Vasculature: Unremarkable. No abdominal aortic aneurysm. Lymph nodes: Unremarkable. No enlarged lymph nodes. Other findings: Hyperdensity within the spinal canal, correlate for surgical intervention/inadvertent material. IMPRESSION: 1. Large volume stool in the rectal vault, measuring up to 8.8 cm, consistent with fecal impaction. Associated mild circumferential wall thickening of the rectum and distal sigmoid colon consistent with mild stercoral colitis. No perforation. Mild perirectal induration. Associated, moderate fecal retention. 2. Germain catheter within a decompressed, severely thickened urinary bladder measuring at least 1 cm in thickness. Evaluation limited as the bladder is decompressed and there is no contrast. 3. Status post right nephrectomy and suspected right adrenalectomy. The left kidney demonstrates compensatory hypertrophy with mild-moderate hydronephrosis. 4. Severe skin thickening with subcutaneous induration and large soft tissue ulceration throughout the inferior right gluteal soft tissues/medial proximal thigh soft tissues, consistent with high-grade decubitus ulcer. This should be correlated with physical exam and wound care. 5. Status post open reduction internal fixation of the left femur with a reverse intramedullary nail and proximal interlocking screw. 6. Hyperdensity within the spinal canal, correlate for surgical intervention/inadvertent material. (5) Complicated UTI (urinary tract infection) Parker Burr Apr 26, 2020 13:18
[2020-04-26] MEDS: LORazepam 1mg tab ORAL PRN (13:32)
--- NOTE | 2020-04-26 14:44 | NUR ---
CASE MANAGEMENT:REVIEW SI; HYDRONEPHROSIS. HEMATURIA. PYURIA. 98.6 88 20 120/67 97% ON RA K+ 3.0 ALB 2.6 IS;MORPHINE SULFATE IV Q4 ZOSYN IV Q8 INF NS @ 100 ML/HR ZINC PO QD VIT C PO BID MED SURG STATUS DCP;[facility]
[2020-04-26] MEDS: Hydromorphone 0.5mg/0.5ml inj IVP PRN ×2 (15:23→20:47)
[2020-04-26 16:00] VITALS: BP 121/63
--- NOTE | 2020-04-26 16:00 | NUR ---
NURSE NOTES: Irrigating every four hours, a few clots during initial irrigation, then the clots clear, however, color remains dumont red.
[2020-04-26] MEDS: Cyclobenzaprine 10mg Tab ORAL PRN (18:40)
--- NOTE | 2020-04-26 19:07 | NUR ---
NURSE NOTES: Irrigated Gaviria catheter, blood clots removed, urine remains dumont colored.
--- NOTE | 2020-04-26 19:42 | NUR ---
NURSE HAND-OFF: Important Events on Shift:Patient Gaviria catheter irrigation [id number], clots, clears to dumont colored urine (bright red). Pain medicine changed from morphine to dilaudid. Patient Status: Stable. Diet: Soft, poor appetite. Pending Orders: N/A Pending Results/Labs:N/A Pending MD notification:N/A Latest Vital Signs: Temperature 98.3 , Pulse 63 , B/P 121 /63 , Respiratory Rate 20 , O2 SAT 97 , Room Air, O2 Flow Rate . Vital Sign Comment: Stable Latest Bennett Fall Score: 70 Fall Risk: High Risk Safety Measures: Call light Within Reach, Bed Alarm Zone 1, Side Rails Side Rails x2, Bed position Low and Locked. Fall Precautions: Yellow Socks Door Sign Patient Fall Education Report given to Domenico Burns RN.
--- NOTE | 2020-04-26 20:02 | NUR ---
NURSE NOTES: Patient is awake, alert, able to make needs known. Kept clean and comfortable. Provided safe environment. Complained of pain will give PRn pain medication. Iv site noted, iv infusing as ordered. Noted with multiple dressings, intact. bed in low and locked position. Respiration is even and unlabored. Gaviria catheter noted, draining, with blood tinged color. call light is at bedside. Will continue plan of care.
[2020-04-26 20:53] VITALS: BP 129/83
--- NOTE | 2020-04-26 23:16 | Psychiatric Progress Note ---
Psychiatry Progress Note Psychiatry Progress Note Medications Current Medications Medications (Trade) Dose Ordered Sig/Kathie Route PRN Reason Start Time Stop Time Status Last Admin Dose Admin Acetaminophen/ Hydrocodone Bitart ([place] 5/325) 1 tab Q4H PRN ORAL Moderate Pain (Pain Scale 4-6) 04/23/20 13:15 04/30/20 13:14 04/24/20 05:47 Ascorbic Acid (Vitamin C) 500 mg TWICE A DAY ORAL 04/24/20 18:00 05/24/20 17:59 04/26/20 18:40 Cyclobenzaprine HCl (Flexeril) 10 mg TIDPRN PRN ORAL Muscle Spasm 04/25/20 10:00 05/02/20 09:59 04/26/20 18:40 Escitalopram Oxalate (Lexapro) 10 mg DAILY ORAL 04/24/20 09:00 05/24/20 08:59 04/24/20 08:46 Hydromorphone HCl (Dilaudid) 0.5 mg Q4H PRN IVP Pain Scale (7-10) 04/26/20 14:45 05/03/20 14:44 04/26/20 20:47 Lorazepam (Ativan) 2 mg Q6H PRN ORAL For Anxiety 04/23/20 14:45 04/30/20 14:44 04/26/20 13:32 Multivitamins (Multivitamins) 1 tab DAILY ORAL 04/25/20 09:00 05/25/20 08:59 Piperacillin Sod/ Tazobactam Sod 3.375 gm/Sodium Chloride 110 ml @ 27.5 mls/hr Q8H IVPB 04/23/20 15:00 04/30/20 14:59 04/26/20 21:59 Risperidone (RisperDAL) 2 mg BEDTIME ORAL 04/23/20 21:00 06/07/20 20:59 04/26/20 20:47 Sodium Chloride 1,000 ml @ 100 mls/hr Q10H IV 04/23/20 13:15 05/23/20 13:14 04/26/20 20:47 Zinc Sulfate (Zinc Sulfate) 220 mg DAILY ORAL 04/25/20 09:00 05/05/20 08:59 Neurological/Psychiatric: Reports: anxiety, depressed, emotional problems Allergies: Coded Allergies: No Known Allergies (Unverified , 04/23/20) Objective Data Height (Feet): 5 Height (Inches): 6.00 Weight (Pounds): 132 General Appearance: alert, confused, agitated Assessment/Plan Assessment/Plan: [place] I Psychotic disorder, not otherwise specified. Depressive disorder, rule out opiate pain medication dependence. [place] II Deferred. [place] III As above. [place] IV Low. [place] V 25 PLAN: 1. We will start the patient on Lexapro 10 mg in the morning. 2. Risperidone 2 mg at bedtime. 3. Provide the patient with reality orientation and supportive therapy. Susan Meza MD Apr 26, 2020 23:16
[2020-04-27] VITALS: BP 113/65
[2020-04-27] MEDS: Hydromorphone 0.5mg/0.5ml inj IVP PRN ×7 (00:32→23:50)
--- NOTE | 2020-04-27 00:44 | NUR ---
NURSE NOTES: Given Prn pain medication, generalized pain, will reassess. Gaviria catheter was flushed. Call light is at bedside. Will continue plan of care.
[2020-04-27 04:00] VITALS: BP 106/56
--- NOTE | 2020-04-27 04:25 | NUR ---
NURSE NOTES: Patient complained of back pain, given PRN pain medication, will reassess. Gaviria catheter flushed. Call light is at bedside. Will continue plan of care.
[2020-04-27] MEDS: Piperacillin/Tazobactam 3.375 GM in NS 110 ML IVPB SCH ×3 (06:20→23:30)
--- NOTE | 2020-04-27 07:12 | NUR ---
NURSE HAND-OFF: Important Events on Shift:Gaviria flushed Patient Status: WNL Diet: Soft Diet Pending Orders: Pending Results/Labs: Pending MD notification: Latest Vital Signs: Temperature 98.7 , Pulse 86 , B/P 106 /56 , Respiratory Rate 20 , O2 SAT 99 , Room Air, O2 Flow Rate . Vital Sign Comment: WNL Latest Bennett Fall Score: 70 Fall Risk: High Risk Safety Measures: Call light Within Reach, Bed Alarm Zone 1, Side Rails Side Rails x2, Bed position Low and Locked. Fall Precautions: Yellow Socks Door Sign Patient Fall Education Report given to AINSLEY Putnam.
--- NOTE | 2020-04-27 07:57 | NUR ---
NURSE NOTES:received am report. pt is sitting up in the bed and eating breakfast. pt is alert and awake, responds verbally. f/c inplace, drains bright red bloody urine. denies any bladder pain and spasms at this time. will flush f/c as ordered. no acute distress noted at this time. call light is placed within reach, will follow plan of care.
[2020-04-27 08:00] VITALS: BP 138/78
--- NOTE | 2020-04-27 09:14 | CDS Physician Query ---
Clarification is required for compliance, coding accuracy, and to reflect severity of illness for this patient Dear Dr. Carson Lancaster Date: 04/27/2020 Vp Organizational Development/CDS Name: Chata White Clinical Documentation sates: HNP - 45-year-old male who came to the emergency room for having paraplegia, gross hematuria, complicated UTI, dehydration, depression, psychosis. 04/26 surgery note: Assessment & Plan: as per urology germain changed cont monitor Treatment: IV piperacillin-tazobactam Please respond to the following question: Is there a diagnosis specific to these symptoms or values? If so please state below. PHYSICIAN RESPONSE: [] Catheter associated UTI [] UTI unrelated to catheter [] Other: [] Unknown Present on Admission: [] Yes [] No [] Clinically Undetermined Physician signature Date Please also document in your Progress Notes and/or Discharge Summary and indicate if the condition was present on admission. MELIDA
[2020-04-27] MEDS: Ascorbic Acid 500mg tab ORAL SCH ×2 (09:16→17:17)
[2020-04-27] MEDS: Zinc Sulfate 220mg ORAL SCH (09:16)
--- NOTE | 2020-04-27 09:22 | General Progress Note ---
Subjective Date patient seen: Apr 27, 2020 Time patient seen: 08:15 - am ROS Limited/Unobtainable: Yes Allergies: Coded Allergies: No Known Allergies (Unverified , 04/23/20) Subjective This is a 45 y/o male being seen on the Med/surg floor of [facility]. Patients pain was severe and noted tolerated on the Morphine and it was changed to Dilaudid 0.5mg IV Q4H PRN. Pain has been better tolerated. No new changes. Objective Last 24 Hour Vital Signs Date Time Temp Pulse Resp B/P (MAP) Pulse Ox O2 Delivery O2 Flow Rate FiO2 04/27/20 08:00 98.0 82 20 138/78 (98) 99 04/27/20 04:00 98.7 86 20 106/56 (73) 99 04/27/20 00:00 97.1 62 20 113/65 (81) 98 04/26/20 21:00 Room Air 04/26/20 20:53 98.3 73 24 129/83 (98) 100 04/26/20 16:00 98.3 63 20 121/63 (82) 97 04/26/20 15:53 98.6 04/26/20 14:02 68 18 120/67 97 04/26/20 13:32 69 18 119/66 97 04/26/20 12:00 98.6 69 20 117/65 (82) 97 04/26/20 11:11 97.6 Intake and Output 04/26/20 04/27/20 19:00 07:00 Intake Total 1732.5 ml 210 ml Output Total 600 ml 800 ml Balance 1132.5 ml -590 ml Intake Oral 240 ml 210 ml IV Total 1492.5 ml Output Urine Total 600 ml 800 ml # Voids 2 # Bowel Movements 1 Height (Feet): 5 Height (Inches): 6.00 Weight (Pounds): 132 Objective General Appearance: no apparent distress EENT: PERRL/EOMI Neck: non-tender Cardiovascular: normal rate Respiratory/Chest: decreased breath sounds Abdomen: tender Extremities: non-tender Edema: trace edema Neurologic: other - awake Assessment/Plan Assessment/Plan: (1) Paraplegia (2) Sacral decubitus ulcer (3) Sacral pain Patient to be continued on Lindsay and Dilaudid D/w Dr. Monique and he concurred. Guero Jean-Baptiste Apr 27, 2020 09:22
--- NOTE | 2020-04-27 09:47 | NUR ---
RD ASSESSMENT & RECOMMENDATIONS SEE CARE ACTIVITY FOR COMPLETE ASSESSMENT DAILY ESTIMATED NEEDS: Needs based on Advanced wounds/ 58.5kg 30-35 kcals/kg 0692-4856 total kcals 1.5-2 g protein/kg 88-117 g total protein 25-30 mL/kg 8545-8029 total fluid mLs NUTRITION DIAGNOSIS: Increased kcal/prot needs R/T wound healing as evidenced byt pt admitted w/ advanced wounds, including stage 4 @ R buttock, stage 3 @ R lateral foot, stage 2 @ sacrum. CURRENT DIET:SOFT PO DIET RECOMMENDATIONS: Liberalized regular/ texture per BULLET SLUG CASTING MACHINE OPERATOR ADDITIONAL RECOMMENDATIONS: * Calibrated bedscale wt for accurate CBW * Ensure Enlive BID w/ meals added- increase w/ good acceptance * Wound healing: Continue MVI, Vit C and ZnSO4 Sebas 1pkt BID * Monitor PO intake: pt refusing meals at this time, rec appetite stimulant * Check A1C: h/o DM noted, BGs wnl at this time. * Consider BULLET SLUG CASTING MACHINE OPERATOR eval for appropriate texture- on mech soft SUPERVISOR DECORATING
--- NOTE | 2020-04-27 09:56 | Urology Progress Note ---
Assessment/Plan Assessment/Plan: 1. Hematuria. 2. Pyuria, probably colonized. 3. Proteinuria. 4. Urinary retention. 5. Neurogenic bladder. 6. Hydronephrosis, which appears to be chronic. monitor clinically maintain germain, placed 04/24 hand irrigated and do PRN watch abx as ordered cysto electively Subjective Allergies: Coded Allergies: No Known Allergies (Unverified , 04/23/20) Subjective all noted, germain hand irrigated Objective Last 24 Hour Vital Signs Date Time Temp Pulse Resp B/P (MAP) Pulse Ox O2 Delivery O2 Flow Rate FiO2 04/27/20 08:00 98.0 82 20 138/78 (98) 99 04/27/20 04:00 98.7 86 20 106/56 (73) 99 04/27/20 00:00 97.1 62 20 113/65 (81) 98 04/26/20 21:00 Room Air 04/26/20 20:53 98.3 73 24 129/83 (98) 100 04/26/20 16:00 98.3 63 20 121/63 (82) 97 04/26/20 15:53 98.6 04/26/20 14:02 68 18 120/67 97 04/26/20 13:32 69 18 119/66 97 04/26/20 12:00 98.6 69 20 117/65 (82) 97 04/26/20 11:11 97.6 Intake and Output 04/26/20 04/27/20 19:00 07:00 Intake Total 1732.5 ml 210 ml Output Total 600 ml 800 ml Balance 1132.5 ml -590 ml Intake Oral 240 ml 210 ml IV Total 1492.5 ml Output Urine Total 600 ml 800 ml # Voids 2 # Bowel Movements 1 Microbiology Date/Time Source Procedure Growth Status 04/23/20 01:30 Rectum - Final NO CARBAPENEM-RESISTANT ENTEROBACTERI... Complete 04/23/20 01:30 Urine,Clean Catch Urine Culture - Final NO GROWTH AFTER 48 HOURS Complete 04/23/20 01:30 Nasal Nares MRSA Culture - Final NO METHICILLIN RESISTANT STAPH AUREUS... Complete Current Medications Medications (Trade) Dose Ordered Sig/Kathie Route PRN Reason Start Time Stop Time Status Last Admin Dose Admin Acetaminophen/ Hydrocodone Bitart ([place] 5/325) 1 tab Q4H PRN ORAL Breakthrough Pain 04/23/20 13:15 11/2/20 13:14 04/24/20 05:47 Ascorbic Acid (Vitamin C) 500 mg TWICE A DAY ORAL 04/24/20 18:00 05/24/20 17:59 04/27/20 09:16 Cyclobenzaprine HCl (Flexeril) 10 mg TIDPRN PRN ORAL Muscle Spasm 04/25/20 10:00 05/02/20 09:59 04/26/20 18:40 Escitalopram Oxalate (Lexapro) 10 mg DAILY ORAL 04/24/20 09:00 05/24/20 08:59 04/27/20 09:16 Hydromorphone HCl (Dilaudid) 0.5 mg Q4H PRN IVP Pain Scale (7-10) 04/26/20 14:45 05/03/20 14:44 04/27/20 09:16 Lorazepam (Ativan) 2 mg Q6H PRN ORAL For Anxiety 04/23/20 14:45 04/30/20 14:44 04/26/20 13:32 Multivitamins (Multivitamins) 1 tab DAILY ORAL 04/25/20 09:00 05/25/20 08:59 04/27/20 09:16 Piperacillin Sod/ Tazobactam Sod 3.375 gm/Sodium Chloride 110 ml @ 27.5 mls/hr Q8H IVPB 04/23/20 15:00 04/30/20 14:59 04/27/20 06:20 Risperidone (RisperDAL) 2 mg BEDTIME ORAL 04/23/20 21:00 06/07/20 20:59 04/26/20 20:47 Sodium Chloride 1,000 ml @ 100 mls/hr Q10H IV 04/23/20 13:15 05/23/20 13:14 04/27/20 06:22 Zinc Sulfate (Zinc Sulfate) 220 mg DAILY ORAL 04/25/20 09:00 05/05/20 08:59 04/27/20 09:16 Height (Feet): 5 Height (Inches): 6.00 Weight (Pounds): 132 Objective exam stable urine is blood-tinged Santos Mccarty MD Apr 27, 2020 09:56
[2020-04-27 12:00] VITALS: BP 112/66
--- NOTE | 2020-04-27 12:27 | NUR ---
NURSE NOTES:pt ate 25% breakfast in AM, and refuses to eat lunch. encouraged pt to eat adequate meal. educated pt about the benefits of eating adequate percentage meal. educated the risk of weight loss. pt is non-compliant. pt is requesting Dilaudid. Dilaudid is not due as ordered. offered break-through pain medication, [place]; pt refuses. encouraged pt to watch TV to distract pain until Dilaudid is due. call light placed within reach.
--- NOTE | 2020-04-27 15:07 | General Progress Note ---
Subjective Allergies: Coded Allergies: No Known Allergies (Unverified , 04/23/20) Subjective c/o hematuria bed ridden more awake poor po intake Objective Last 24 Hour Vital Signs Date Time Temp Pulse Resp B/P (MAP) Pulse Ox O2 Delivery O2 Flow Rate FiO2 04/27/20 12:00 98.2 84 20 112/66 (81) 99 04/27/20 09:00 Room Air 04/27/20 08:00 98.0 82 20 138/78 (98) 99 04/27/20 04:00 98.7 86 20 106/56 (73) 99 04/27/20 00:00 97.1 62 20 113/65 (81) 98 04/26/20 21:00 Room Air 04/26/20 20:53 98.3 73 24 129/83 (98) 100 04/26/20 16:00 98.3 63 20 121/63 (82) 97 04/26/20 15:53 98.6 Intake and Output 04/26/20 04/27/20 19:00 07:00 Intake Total 1732.5 ml 210 ml Output Total 600 ml 800 ml Balance 1132.5 ml -590 ml Intake Oral 240 ml 210 ml IV Total 1492.5 ml Output Urine Total 600 ml 800 ml # Voids 2 # Bowel Movements 1 Height (Feet): 5 Height (Inches): 6.00 Weight (Pounds): 132 General Appearance: alert Neck: supple Cardiovascular: regular rhythm Respiratory/Chest: normal breath sounds Abdomen: normal bowel sounds, soft Extremities: non-tender Assessment/Plan Assessment/Plan: hematuria uti paraplegia agitation failure of thrive add magcee urology eval cont iv abx ivf id eval dc plan to [facility] Joao Lancaster MD Apr 27, 2020 15:07
--- NOTE | 2020-04-27 15:36 | Psychiatric Progress Note ---
Psychiatry Progress Note Psychiatry Progress Note Medications Current Medications Medications (Trade) Dose Ordered Sig/Kathie Route PRN Reason Start Time Stop Time Status Last Admin Dose Admin Acetaminophen/ Hydrocodone Bitart ([place] 5/325) 1 tab Q4H PRN ORAL Breakthrough Pain 04/23/20 13:15 04/30/20 13:14 04/24/20 05:47 Ascorbic Acid (Vitamin C) 500 mg TWICE A DAY ORAL 04/24/20 18:00 05/24/20 17:59 04/27/20 09:16 Cyclobenzaprine HCl (Flexeril) 10 mg TIDPRN PRN ORAL Muscle Spasm 04/25/20 10:00 05/02/20 09:59 04/26/20 18:40 Escitalopram Oxalate (Lexapro) 10 mg DAILY ORAL 04/24/20 09:00 05/24/20 08:59 04/27/20 09:16 Hydromorphone HCl (Dilaudid) 0.5 mg Q4H PRN IVP Pain Scale (7-10) 04/26/20 14:45 05/03/20 14:44 04/27/20 13:17 Lorazepam (Ativan) 2 mg Q6H PRN ORAL For Anxiety 04/23/20 14:45 04/30/20 14:44 04/26/20 13:32 Multivitamins (Multivitamins) 1 tab DAILY ORAL 04/25/20 09:00 05/25/20 08:59 04/27/20 09:16 Piperacillin Sod/ Tazobactam Sod 3.375 gm/Sodium Chloride 110 ml @ 27.5 mls/hr Q8H IVPB 04/23/20 15:00 04/30/20 14:59 04/27/20 15:02 Risperidone (RisperDAL) 2 mg BEDTIME ORAL 04/23/20 21:00 06/07/20 20:59 04/26/20 20:47 Sodium Chloride 1,000 ml @ 100 mls/hr Q10H IV 04/23/20 13:15 05/23/20 13:14 04/27/20 06:22 Zinc Sulfate (Zinc Sulfate) 220 mg DAILY ORAL 04/25/20 09:00 05/05/20 08:59 04/27/20 09:16 Neurological/Psychiatric: Reports: anxiety, depressed, emotional problems Allergies: Coded Allergies: No Known Allergies (Unverified , 04/23/20) Objective Data Height (Feet): 5 Height (Inches): 6.00 Weight (Pounds): 132 General Appearance: alert Assessment/Plan [place] I: [place] I Psychotic disorder, not otherwise specified. Depressive disorder, rule out opiate pain medication dependence. [place] II Deferred. [place] III As above. [place] IV Low. [place] V 25 PLAN: 1. We will start the patient on Lexapro 10 mg in the morning. 2. Risperidone 2 mg at bedtime. 3. Provide the patient with reality orientation and supportive therapy. Status Narrative [place] I Psychotic disorder, not otherwise specified. Depressive disorder, rule out opiate pain medication dependence. [place] II Deferred. [place] III As above. [place] IV Low. [place] V 25 PLAN: 1. We will start the patient on Lexapro 10 mg in the morning. 2. Risperidone 2 mg at bedtime. 3. Provide the patient with reality orientation and supportive therapy. Assessment/Plan: [place] I Psychotic disorder, not otherwise specified. Depressive disorder, rule out opiate pain medication dependence. [place] II Deferred. [place] III As above. [place] IV Low. [place] V 25 PLAN: 1. We will start the patient on Lexapro 10 mg in the morning. 2. Risperidone 2 mg at bedtime. 3. Provide the patient with reality orientation and supportive therapy. Susan Meza MD Apr 27, 2020 15:36
[2020-04-27 16:00] VITALS: BP 103/64
--- NOTE | 2020-04-27 16:06 | NUR ---
NURSE NOTES:pt asks for Dilaudid pain medication at all time and before the due time. explained to pt that his Dilaudid is due every 4 hours after medication administration. offered breakthrough pain medications, [place], as scheduled. pt refuses, and continues to ask for Dilaudid medication despite all explanations given.
--- NOTE | 2020-04-27 16:18 | NUR ---
CASE MANAGEMENT:REVIEW SI; HYDRONEPHROSIS. HEMATURIA. PYURIA. 98.2 86 20 138/78 98% ON RA IS;DILAUDID IV Q4 PRN ZINC SULFATE PO ZOSYN IV Q8 IVF NS @ 100 ML/HR MED SURG STATUS DCP;FROM [facility] PLAN; ACTIVELY DC PLANNING TO SNF WHEN CLEARED FOR DC
--- NOTE | 2020-04-27 16:55 | Surgery Progress Note ---
Surgery Progress Note Subjective Additional Comments no acute events comfortable stable Objective Last 24 Hour Vital Signs Date Time Temp Pulse Resp B/P (MAP) Pulse Ox O2 Delivery O2 Flow Rate FiO2 04/27/20 16:00 98.2 78 18 103/64 (77) 96 04/27/20 12:00 98.2 84 20 112/66 (81) 99 04/27/20 09:00 Room Air 04/27/20 08:00 98.0 82 20 138/78 (98) 99 04/27/20 04:00 98.7 86 20 106/56 (73) 99 04/27/20 00:00 97.1 62 20 113/65 (81) 98 04/26/20 21:00 Room Air 04/26/20 20:53 98.3 73 24 129/83 (98) 100 I&O Intake and Output 04/26/20 04/27/20 19:00 07:00 Intake Total 1732.5 ml 210 ml Output Total 600 ml 800 ml Balance 1132.5 ml -590 ml Intake Oral 240 ml 210 ml IV Total 1492.5 ml Output Urine Total 600 ml 800 ml # Voids 2 # Bowel Movements 1 Dressing: saturated Cardiovascular: RSR Respiratory: decreased breath sounds Abdomen: non-tender, present bowel sounds Extremities: no edema, no tenderness Plan Problems: (1) Pressure ulcer Assessment & Plan: Patient identified to have multiple skin concerns upon admission. he is awake and only somewhat responsive as he chooses to be. not cooperative with exam. Right Ischial pressure ulcer stage 4 noted 2.6x2.3x1.7 undermining 3to6 o'clock 90% pink muscle and granulation % yellow slough ,edges macerated. . Tx plan: Thera Honey and optifoam daily. Sacral/coccyx pressure ulcer stage 2 0.8x0.4x0.2 pink tissue no drainage noted aga wound intact Tx plan: Triad and Optifoam change q3 days and prn. Left buttock pressure ulcer stage 2 0.7x0.3x0.2 pink wound bed no drainage Tx plan: triad and optifoam change q3 days Right lateral foot pressure ulcer stage 2 2.0x2.1x0.2 wound bed pink scant s erosanguineous drainage noted, aga wound dry flakey intact skin. Tx plan: triad and optifoam change q3 days Air mattress overlay placed on bed during assessment. nutritional optimization turn q2h will follow with recs thank you DAILY ESTIMATED NEEDS: Needs based on Advanced wounds/ 58.5kg 30-35 kcals/kg 0188-4706 total kcals 1.5-2 g protein/kg 88-117 g total protein 25-30 mL/kg 6923-6259 total fluid mLs NUTRITION DIAGNOSIS: Increased kcal/prot needs R/T wound healing as evidenced by pt admitted w/ advanced wounds, including stage 4 @ R buttock, stage 3 @ R lateral foot, stage 2 @ sacrum. CURRENT DIET:SOFT PO DIET RECOMMENDATIONS: Liberalized regular/ texture per [employer] ADDITIONAL RECOMMENDATIONS: * Calibrated bedscale wt for accurate CBW * Ensure Enlive TID w/ meals added * Wound healing: Add MVI w/ min x 1, Vit C 500mg BID, ZnSO4 220mg [id number] Sebas 1pkt BID * Monitor PO intake: pt refusing meals at this time -> consider appetite stimulant * Monitor lytes, replete as needed (2) Paraplegia (3) Psychiatric follow-up (4) Gross hematuria Assessment & Plan: as per urology germain changed cont monitor abx as per pcp ABDOMEN: Liver: Unremarkable. Gallbladder and bile ducts: Unremarkable. No calcified stones. No ductal dilation. Pancreas: Unremarkable. No ductal dilation. Spleen: Unremarkable. No splenomegaly. Adrenals: Unremarkable. No mass. 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 The left kidney demonstrates compensatory hypertrophy with mild-moderate hydronephrosis. Stomach and bowel: Large volume stool in the rectal vault, measuring up to 8.8 cm, consistent with fecal impaction. Associated mild circumferential wall thickening of the rectum and distal sigmoid colon consistent with mild stercoral colitis. No perforation. Mild perirectal induration. Associated, moderate fecal retention. PELVIS: Appendix: No findings to suggest acute appendicitis. Bladder: Germain catheter within a decompressed, severely thickened urinary bladder measuring at least 1 cm in thickness. Evaluation limited as the bladder is decompressed and there is no contrast. No stones. Reproductive: Unremarkable as visualized. ABDOMEN and PELVIS: Intraperitoneal space: Unremarkable. No free air. No significant fluid collection. Bones/joints: Status post open reduction internal fixation of the left femur with a reverse intramedullary nail and proximal interlocking screw. Degenerative changes of the spine with dysplasia the lumbar spine and sacrum. No acute fracture. No dislocation. Soft tissues: Severe skin thickening with subcutaneous induration and large soft tissue ulceration throughout the inferior right gluteal soft tissues/medial proximal thigh soft tissues, consistent with high-grade decubitus ulcer. This should be correlated with physical exam and wound care. Vasculature: Unremarkable. No abdominal aortic aneurysm. Lymph nodes: Unremarkable. No enlarged lymph nodes. Other findings: Hyperdensity within the spinal canal, correlate for surgical intervention/inadvertent material. IMPRESSION: 1. Large volume stool in the rectal vault, measuring up to 8.8 cm, consistent with fecal impaction. Associated mild circumferential wall thickening of the rectum and distal sigmoid colon consistent with mild stercoral colitis. No perforation. Mild perirectal induration. Associated, moderate fecal retention. 2. Germain catheter within a decompressed, severely thickened urinary bladder measuring at least 1 cm in thickness. Evaluation limited as the bladder is decompressed and there is no contrast. 3. Status post right nephrectomy and suspected right adrenalectomy. The left kidney demonstrates compensatory hypertrophy with mild-moderate hydronephrosis. 4. Severe skin thickening with subcutaneous induration and large soft tissue ulceration throughout the inferior right gluteal soft tissues/medial proximal thigh soft tissues, consistent with high-grade decubitus ulcer. This should be correlated with physical exam and wound care. 5. Status post open reduction internal fixation of the left femur with a reverse intramedullary nail and proximal interlocking screw. 6. Hyperdensity within the spinal canal, correlate for surgical intervention/inadvertent material. (5) Complicated UTI (urinary tract infection) Parker Burr Apr 27, 2020 16:55
--- NOTE | 2020-04-27 17:04 | NUR ---
*-*DISCHARGE PLANNING*-* PATIENT HAS BEEN REFERRED BACK TO: [facility] P: [phone]
--- NOTE | 2020-04-27 18:32 | NUR ---
NURSE NOTES: Patient was screaming and yelling and I went to speak to patient. patient stated he was in pain and I advised him that he had break through pain medication PRN Wilmar which he has continue to refuse to take. AINSLEY Putnam has offered it to the patient and he continues to refuse as well as the PRN flexeril. I advised patient that the MD had already changed the frequency and he was given the pain medication just recently. Patient replied that it didnt work and that it was water. Again he was offered the break through medication and agan refused. AINSLEY Putnam witnessed. Patient then became verbally abusive and we left the room.
--- NOTE | 2020-04-27 19:27 | NUR ---
NURSE HAND-OFF: Important Events on Shift:frequent asking for pain med before due time. Dilaudid 0.5 ml frequency changed from q 4 hrs to q 2 hrs PRN Patient Status: stable Diet: soft diet Pending Orders: n/a Pending Results/Labs:n/a Pending MD notification:n/a Latest Vital Signs: Temperature 98.2 , Pulse 78 , B/P 103 /64 , Respiratory Rate 18 , O2 SAT 96 , Room Air, O2 Flow Rate . Vital Sign Comment: stable Latest Bennett Fall Score: 70 Fall Risk: High Risk Safety Measures: Call light Within Reach, Bed Alarm Zone 1, Side Rails Side Rails x2, Bed position Low and Locked. Fall Precautions: Yellow Socks Door Sign Patient Fall Education Report given to
--- NOTE | 2020-04-27 19:30 | NUR ---
NURSE NOTES: Received patient in no apparent distress. A&OX4. IV site patent and intact. Gaviria cath draining well by gravity, reddish urine noted. Bed in lowest position. Call light within reach. Will continue to monitor.
[2020-04-27 20:00] VITALS: BP 130/74
--- NOTE | 2020-04-27 20:44 | NUR ---
NURSE NOTES: Hand irrigated Gaviria cath.
[2020-04-28] VITALS: BP 108/70
[2020-04-28] MEDS: Hydromorphone 0.5mg/0.5ml inj IVP PRN ×8 (02:29→23:35)
[2020-04-28 04:00] VITALS: BP 106/65
[2020-04-28] MEDS: Piperacillin/Tazobactam 3.375 GM in NS 110 ML IVPB SCH ×3 (06:01→22:08)
--- NOTE | 2020-04-28 07:00 | NUR ---
NURSE NOTES: Hand irrigated Gaviria cath, pinkish urine noted.
--- NOTE | 2020-04-28 07:33 | NUR ---
NURSE HAND-OFF: Important Events on Shift: Irrigated twice Gaviria cath, pinkish urine noted Patient Status: Diet: Soft diet Pending Orders: Pending Results/Labs: Pending MD notification: Latest Vital Signs: Temperature 97.7 , Pulse 77 , B/P 106 /65 , Respiratory Rate 18 , O2 SAT 98 , Room Air, O2 Flow Rate . Vital Sign Comment: Latest Bennett Fall Score: 70 Fall Risk: High Risk Safety Measures: Call light Within Reach, Bed Alarm Zone 1, Side Rails Side Rails x2, Bed position Low and Locked. Fall Precautions: Yellow Socks Yellow Gown Door Sign Patient Fall Education Report given to Estefani SCHMITZ.
[2020-04-28 08:00] VITALS: BP 122/80
--- NOTE | 2020-04-28 08:00 | NUR ---
NURSE NOTES: Patient awake and alert to name,respirations unlabored.Gaviria catheter is in place and draining mostly jessica color urine,lightly blood tinge.IV fluids infusing as ordered.Breakfast at bedside.Bed alarm is on,call light within reach.
--- NOTE | 2020-04-28 09:06 | Surgery Progress Note ---
Surgery Progress Note Subjective Symptoms: other Objective Last 24 Hour Vital Signs Date Time Temp Pulse Resp B/P (MAP) Pulse Ox O2 Delivery O2 Flow Rate FiO2 04/28/20 04:00 97.7 77 18 106/65 (79) 98 04/28/20 00:00 97.5 78 18 108/70 (83) 98 04/27/20 21:00 Room Air 04/27/20 20:00 98.2 101 18 130/74 (92) 97 04/27/20 16:00 98.2 78 18 103/64 (77) 96 04/27/20 12:00 98.2 84 20 112/66 (81) 99 I&O Intake and Output 04/27/20 04/28/20 19:00 07:00 Intake Total 580 ml 1120 ml Output Total 900 ml 800 ml Balance -320 ml 320 ml Intake Oral 480 ml 120 ml IV Total 100 ml 1000 ml Output Urine Total 900 ml 800 ml # Voids 1 # Bowel Movements 1 Dressing: saturated Cardiovascular: RSR Respiratory: decreased breath sounds Abdomen: non-tender, present bowel sounds Extremities: no edema, no tenderness, no cyanosis Plan Problems: (1) Pressure ulcer Assessment & Plan: Patient identified to have multiple skin concerns upon admission. he is awake and only somewhat responsive as he chooses to be. not cooperative with exam. Right Ischial pressure ulcer stage 4 noted 2.6x2.3x1.7 undermining 3to6 o'clock 90% pink muscle and granulation [id number] yellow slough ,edges macerated. . Tx plan: Thera Honey and optifoam daily. Sacral/coccyx pressure ulcer stage 2 0.8x0.4x0.2 pink tissue no drainage noted aga wound intact Tx plan: Triad and Optifoam change q3 days and prn. Left buttock pressure ulcer stage 2 0.7x0.3x0.2 pink wound bed no drainage Tx plan: triad and optifoam change q3 days Right lateral foot pressure ulcer stage 2 2.0x2.1x0.2 wound bed pink scant serosanguineous drainage noted, aga wound dry flakey intact skin. Tx plan: triad and optifoam change q3 days Air mattress overlay placed on bed during assessment. nutritional optimization turn q2h will follow with recs thank you DAILY ESTIMATED NEEDS: Needs based on Advanced wounds/ 58.5kg 30-35 kcals/kg 4242-1098 total kcals 1.5-2 g protein/kg 88-117 g total protein 25-30 mL/kg 0355-0461 total fluid mLs NUTRITION DIAGNOSIS: Increased kcal/prot needs R/T wound healing as evidenced by pt admitted w/ advanced wounds, including stage 4 @ R buttock, stage 3 @ R lateral foot, stage 2 @ sacrum. CURRENT DIET:SOFT PO DIET RECOMMENDATIONS: Liberalized regular/ texture per [employer] ADDITIONAL RECOMMENDATIONS: * Calibrated bedscale wt for accurate CBW * Ensure Enlive TID w/ meals added * Wound healing: Add MVI w/ min x 1, Vit C 500mg BID, ZnSO4 220mg [id number] Sebas 1pkt BID * Monitor PO intake: pt refusing meals at this time -> consider appetite stimulant * Monitor lytes, replete as needed (2) Paraplegia (3) Psychiatric follow-up (4) Gross hematuria Assessment & Plan: as per urology germain changed cont monitor abx as per pcp ABDOMEN: Liver: Unremarkable. Gallbladder and bile ducts: Unremarkable. No calcified stones. No ductal dilation. Pancreas: Unremarkable. No ductal dilation. Spleen: Unremarkable. No splenomegaly. Adrenals: Unremarkable. No mass. 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 The left kidney demonstrates compensatory hypertrophy with mild-moderate hydronephrosis. Stomach and bowel: Large volume stool in the rectal vault, measuring up to 8.8 cm, consistent with fecal impaction. Associated mild circumferential wall thickening of the rectum and distal sigmoid colon consistent with mild stercoral colitis. No perforation. Mild perirectal induration. Associated, moderate fecal retention. PELVIS: Appendix: No findings to suggest acute appendicitis. Bladder: Germain catheter within a decompressed, severely thickened urinary bladder measuring at least 1 cm in thickness. Evaluation limited as the bladder is decompressed and there is no contrast. No stones. Reproductive: Unremarkable as visualized. ABDOMEN and PELVIS: Intraperitoneal space: Unremarkable. No free air. No significant fluid collection. Bones/joints: Status post open reduction internal fixation of the left femur with a reverse intramedullary nail and proximal interlocking screw. Degenerative changes of the spine with dysplasia the lumbar spine and sacrum. No acute fracture. No dislocation. Soft tissues: Severe skin thickening with subcutaneous induration and large soft tissue ulceration throughout the inferior right gluteal soft tissues/medial proximal thigh soft tissues, consistent with high-grade decubitus ulcer. This should be correlated with physical exam and wound care. Vasculature: Unremarkable. No abdominal aortic aneurysm. Lymph nodes: Unremarkable. No enlarged lymph nodes. Other findings: Hyperdensity within the spinal canal, correlate for surgical intervention/inadvertent material. IMPRESSION: 1. Large volume stool in the rectal vault, measuring up to 8.8 cm, consistent with fecal impaction. Associated mild circumferential wall thickening of the rectum and distal sigmoid colon consistent with mild stercoral colitis. No perforation. Mild perirectal induration. Associated, moderate fecal retention. 2. Germain catheter within a decompressed, severely thickened urinary bladder measuring at least 1 cm in thickness. Evaluation limited as the bladder is decompressed and there is no contrast. 3. Status post right nephrectomy and suspected right adrenalectomy. The left kidney demonstrates compensatory hypertrophy with mild-moderate hydronephrosis. 4. Severe skin thickening with subcutaneous induration and large soft tissue ulceration throughout the inferior right gluteal soft tissues/medial proximal thigh soft tissues, consistent with high-grade decubitus ulcer. This should be correlated with physical exam and wound care. 5. Status post open reduction internal fixation of the left femur with a reverse intramedullary nail and proximal interlocking screw. 6. Hyperdensity within the spinal canal, correlate for surgical intervention/inadvertent material. (5) Complicated UTI (urinary tract infection) Parker Burr Apr 28, 2020 09:06
[2020-04-28] MEDS: Ascorbic Acid 500mg tab ORAL SCH ×2 (09:09→19:15)
[2020-04-28] MEDS: Zinc Sulfate 220mg ORAL SCH (09:09)
[2020-04-28 12:00] VITALS: BP 127/81
--- NOTE | 2020-04-28 13:23 | NUR ---
NURSE NOTES: Spoke to regarding patient and placement and new order received. Order read back and carried out.
--- NOTE | 2020-04-28 13:57 | Psychiatric Progress Note ---
Psychiatry Progress Note Psychiatry Progress Note Medications Current Medications Medications (Trade) Dose Ordered Sig/Kathie Route PRN Reason Start Time Stop Time Status Last Admin Dose Admin Acetaminophen/ Hydrocodone Bitart ([place] 5/325) 1 tab Q4H PRN ORAL Breakthrough Pain 04/23/20 13:15 04/30/20 13:14 04/24/20 05:47 Ascorbic Acid (Vitamin C) 500 mg TWICE A DAY ORAL 04/24/20 18:00 05/24/20 17:59 04/28/20 09:09 Cyclobenzaprine HCl (Flexeril) 10 mg TIDPRN PRN ORAL Muscle Spasm 04/25/20 10:00 05/02/20 09:59 04/26/20 18:40 Escitalopram Oxalate (Lexapro) 10 mg DAILY ORAL 04/24/20 09:00 05/24/20 08:59 04/28/20 09:09 Hydromorphone HCl (Dilaudid) 0.5 mg Q2H PRN IVP Pain Scale (7-10) 04/27/20 17:15 05/04/20 17:14 04/28/20 12:37 Lorazepam (Ativan) 2 mg Q6H PRN ORAL For Anxiety 04/23/20 14:45 04/30/20 14:44 04/26/20 13:32 Multivitamins (Multivitamins) 1 tab DAILY ORAL 04/25/20 09:00 05/25/20 08:59 04/28/20 09:09 Piperacillin Sod/ Tazobactam Sod 3.375 gm/Sodium Chloride 110 ml @ 27.5 mls/hr Q8H IVPB 04/23/20 15:00 04/30/20 14:59 04/28/20 06:01 Risperidone (RisperDAL) 2 mg BEDTIME ORAL 04/23/20 21:00 06/07/20 20:59 04/27/20 20:34 Sodium Chloride 1,000 ml @ 100 mls/hr Q10H IV 04/23/20 13:15 05/23/20 13:14 04/28/20 04:10 Zinc Sulfate (Zinc Sulfate) 220 mg DAILY ORAL 04/25/20 09:00 05/05/20 08:59 04/28/20 09:09 Neurological/Psychiatric: Reports: anxiety, depressed, emotional problems Allergies: Coded Allergies: No Known Allergies (Unverified , 04/23/20) Objective Data Height (Feet): 5 Height (Inches): 6.00 Weight (Pounds): 132 General Appearance: alert Appearance: no abnormalities noted Behavior Mannerisms: good eye contact Mental Status Exam - Affect: blunted Mental Status Exam - Mood: depressed, irritable Mental Status Exam - Suicidal: not present Additional Comments: alert, unable to communicate and evaluate him for mental status. Assessment/Plan [place] I: [place] I Psychotic disorder, not otherwise specified. Depressive disorder, rule out opiate pain medication dependence. [place] II Deferred. Thornfield III As above. Thornfield IV Low. [place] V 25 PLAN: 1. We will start the patient on Lexapro 10 mg in the morning. 2. Risperidone 2 mg at bedtime. 3. Provide the patient with reality orientation and supportive therapy. Status: stable Status Narrative [place] I Psychotic disorder, not otherwise specified. Depressive disorder, rule out opiate pain medication dependence. [place]field II Deferred. Thornfield III As above. Thornfield IV Low. [place] V 25 PLAN: 1. We will start the patient on Lexapro 10 mg in the morning. 2. Risperidone 2 mg at bedtime. 3. Provide the patient with reality orientation and supportive therapy. Assessment/Plan: [place] I Psychotic disorder, not otherwise specified. Depressive disorder, rule out opiate pain medication dependence. Thornfield II Deferred. Thornfield III As above. Thornfield IV Low. [place] V 25 PLAN: 1. We will start the patient on Lexapro 10 mg in the morning. 2. Risperidone 2 mg at bedtime. 3. Provide the patient with reality orientation and supportive therapy. Susan Meza MD Apr 28, 2020 13:57
--- NOTE | 2020-04-28 14:54 | General Progress Note ---
Subjective Allergies: Coded Allergies: No Known Allergies (Unverified , 04/23/20) Subjective c/o hematuria bed ridden more awake drinking liqiuds Objective Last 24 Hour Vital Signs Date Time Temp Pulse Resp B/P (MAP) Pulse Ox O2 Delivery O2 Flow Rate FiO2 04/28/20 12:00 97.9 83 19 127/81 (96) 97 04/28/20 10:30 97.9 04/28/20 09:23 Room Air 04/28/20 08:00 97.9 71 17 122/80 (94) 97 04/28/20 04:00 97.7 77 18 106/65 (79) 98 04/28/20 00:00 97.5 78 18 108/70 (83) 98 04/27/20 21:00 Room Air 04/27/20 20:00 98.2 101 18 130/74 (92) 97 04/27/20 16:00 98.2 78 18 103/64 (77) 96 Intake and Output 04/27/20 04/28/20 19:00 07:00 Intake Total 580 ml 1120 ml Output Total 900 ml 800 ml Balance -320 ml 320 ml Intake Oral 480 ml 120 ml IV Total 100 ml 1000 ml Output Urine Total 900 ml 800 ml # Voids 1 # Bowel Movements 1 Height (Feet): 5 Height (Inches): 6.00 Weight (Pounds): 132 General Appearance: alert Neck: supple Cardiovascular: regular rhythm Respiratory/Chest: normal breath sounds Abdomen: non tender, soft Extremities: non-tender Assessment/Plan Assessment/Plan: hematuria uti paraplegia agitation failure of thrive add magcee urology eval cont iv abx ivf id eval dc plan to [facility] Joao Lancaster MD Apr 28, 2020 14:54
--- NOTE | 2020-04-28 15:49 | Urology Progress Note ---
Assessment/Plan Assessment/Plan: 1. Hematuria, resolving. 2. Pyuria, probably colonized. 3. Proteinuria. 4. Urinary retention. 5. Neurogenic bladder. 6. Hydronephrosis, which appears to be chronic. monitor clinically maintain germain, placed 04/24 hand irrigated and do PRN no active bleeding watch abx as ordered cysto electively add flomax voiding trial at some point? Subjective Allergies: Coded Allergies: No Known Allergies (Unverified , 04/23/20) Subjective all noted Objective Last 24 Hour Vital Signs Date Time Temp Pulse Resp B/P (MAP) Pulse Ox O2 Delivery O2 Flow Rate FiO2 04/28/20 12:00 97.9 83 19 127/81 (96) 97 04/28/20 10:30 97.9 04/28/20 09:23 Room Air 04/28/20 08:00 97.9 71 17 122/80 (94) 97 04/28/20 04:00 97.7 77 18 106/65 (79) 98 04/28/20 00:00 97.5 78 18 108/70 (83) 98 04/27/20 21:00 Room Air 04/27/20 20:00 98.2 101 18 130/74 (92) 97 04/27/20 16:00 98.2 78 18 103/64 (77) 96 Intake and Output 04/27/20 04/28/20 19:00 07:00 Intake Total 580 ml 1120 ml Output Total 900 ml 800 ml Balance -320 ml 320 ml Intake Oral 480 ml 120 ml IV Total 100 ml 1000 ml Output Urine Total 900 ml 800 ml # Voids 1 # Bowel Movements 1 Microbiology Date/Time Source Procedure Growth Status 04/23/20 01:30 Rectum - Final NO CARBAPENEM-RESISTANT ENTEROBACTERI... Complete 04/23/20 01:30 Urine,Clean Catch Urine Culture - Final NO GROWTH AFTER 48 HOURS Complete 04/23/20 01:30 Nasal Nares MRSA Culture - Final NO METHICILLIN RESISTANT STAPH AUREUS... Complete Current Medications Medications (Trade) Dose Ordered Sig/Kathie Route PRN Reason Start Time Stop Time Status Last Admin Dose Admin Acetaminophen/ Hydrocodone Bitart ([place] 5/325) 1 tab Q4H PRN ORAL Breakthrough Pain 04/23/20 13:15 04/30/20 13:14 04/24/20 05:47 Ascorbic Acid (Vitamin C) 500 mg TWICE A DAY ORAL 04/24/20 18:00 05/24/20 17:59 04/28/20 09:09 Cyclobenzaprine HCl (Flexeril) 10 mg TIDPRN PRN ORAL Muscle Spasm 04/25/20 10:00 05/02/20 09:59 04/26/20 18:40 Escitalopram Oxalate (Lexapro) 10 mg DAILY ORAL 04/24/20 09:00 05/24/20 08:59 04/28/20 09:09 Hydromorphone HCl (Dilaudid) 0.5 mg Q2H PRN IVP Pain Scale (7-10) 04/27/20 17:15 05/04/20 17:14 04/28/20 15:34 Lorazepam (Ativan) 2 mg Q6H PRN ORAL For Anxiety 04/23/20 14:45 04/30/20 14:44 04/26/20 13:32 Multivitamins (Multivitamins) 1 tab DAILY ORAL 04/25/20 09:00 05/25/20 08:59 04/28/20 09:09 Piperacillin Sod/ Tazobactam Sod 3.375 gm/Sodium Chloride 110 ml @ 27.5 mls/hr Q8H IVPB 04/23/20 15:00 04/30/20 14:59 04/28/20 14:55 Risperidone (RisperDAL) 2 mg BEDTIME ORAL 04/23/20 21:00 06/07/20 20:59 04/27/20 20:34 Sodium Chloride 1,000 ml @ 100 mls/hr Q10H IV 04/23/20 13:15 05/23/20 13:14 04/28/20 14:48 Zinc Sulfate (Zinc Sulfate) 220 mg DAILY ORAL 04/25/20 09:00 05/05/20 08:59 04/28/20 09:09 Height (Feet): 5 Height (Inches): 6.00 Weight (Pounds): 132 Objective exam stable urine is less blood-tinged Santos Mccarty MD Apr 28, 2020 15:49
[2020-04-28 16:00] VITALS: BP 152/107
--- NOTE | 2020-04-28 16:17 | NUR ---
NURSE NOTES: DR Lancaster was here and updated regarding patient refusing Rapid Covid test Patient also refusing wound assessment.
--- NOTE | 2020-04-28 19:16 | NUR ---
NURSE NOTES: Patient requesting pain medication,pain medication as ordered.Foey cathetr continue to drain mostly jessica with light pink tinge urine.Call light within reach.Bed alarm on.
--- NOTE | 2020-04-28 19:30 | NUR ---
NURSE HAND-OFF: Henrietta SCHMITZ Important Events on Shift:[] Patient Status: [] Diet: [Soft poor appetite today. Pending Orders: [] Pending Results/Labs:[] Pending MD notification:[] Latest Vital Signs: Temperature 97.0 , Pulse 100 , B/P 152 /107 , Respiratory Rate 20 , O2 SAT 97 , Room Air, O2 Flow Rate . Vital Sign Comment: [] Latest Bennett Fall Score: 70 Fall Risk: High Risk Safety Measures: Call light Within Reach, Bed Alarm Zone 1, Side Rails Side Rails x2, Bed position Low and Locked. Fall Precautions: Yellow Socks Yellow Gown Door Sign y Patient Fall Education bed alarm Report given to [].
--- NOTE | 2020-04-28 19:51 | NUR ---
NURSE NOTES: Received patient in no apparent distress. A&OX4. IV site patent and intact. Gaviria cath draining well by gravity, pinkish urine noted. Bed in lowest position. Call light within reach. Will continue to monitor.
[2020-04-28 20:00] VITALS: BP 132/91
[2020-04-28] MEDS: Tamsulosin 0.4mg cap ORAL SCH (21:20)
--- NOTE | 2020-04-28 22:27 | NUR ---
NURSE NOTES: Dressing changed and picture taken. Hand irrigated Gaviria cath.
[2020-04-29] VITALS: BP 114/74
[2020-04-29] MEDS: Hydromorphone 0.5mg/0.5ml inj IVP PRN ×9 (02:18→23:05)
[2020-04-29 04:00] VITALS: BP 126/76
[2020-04-29] MEDS: Piperacillin/Tazobactam 3.375 GM in NS 110 ML IVPB SCH ×3 (06:31→23:05)
--- NOTE | 2020-04-29 07:38 | General Progress Note ---
Subjective Date patient seen: Apr 29, 2020 Time patient seen: 06:15 - am Constitutional: Reports: weakness HEENT: Reports: no symptoms Cardiovascular: Reports: no symptoms Respiratory: Reports: no symptoms Gastrointestinal/Abdominal: Reports: no symptoms Genitourinary: Reports: hematuria Neurologic/Psychiatric: Reports: no symptoms Endocrine: Reports: no symptoms Hematologic/Lymphatic: Reports: no symptoms Allergies: Coded Allergies: No Known Allergies (Unverified , 04/23/20) Subjective This is a 45 y/o male [place] [facility] [place] bed and conversing. Pain was severe and Dilaudid was changed to Q2H as needed. Now patient is tolerating the pain on the medication to a moderate level. Was advised to use the [place], he seems to understand Objective Last 24 Hour Vital Signs Date Time Temp Pulse Resp B/P (MAP) Pulse Ox O2 Delivery O2 Flow Rate FiO2 04/29/20 04:00 98.3 71 18 126/76 (93) 96 04/29/20 00:00 98.0 69 18 114/74 (87) 96 04/28/20 21:00 Room Air 04/28/20 20:00 97.9 75 18 132/91 (105) 96 04/28/20 16:00 97.0 100 20 152/107 (122) 97 04/28/20 12:00 97.9 83 19 127/81 (96) 97 04/28/20 10:30 97.9 04/28/20 09:23 Room Air 04/28/20 08:00 97.9 71 17 122/80 (94) 97 Intake and Output 04/28/20 04/29/20 19:00 07:00 Intake Total 1910.0 ml 1450.0 ml Output Total 1800 ml 1600 ml Balance 110.0 ml -150.0 ml Intake Oral 600 ml 240 ml IV Total 1310.0 ml 1210.0 ml Output Urine Total 1800 ml 1600 ml # Voids 1 # Bowel Movements 4 Height (Feet): 5 Height (Inches): 6.00 Weight (Pounds): 132 Objective General Appearance: no apparent distress EENT: PERRL/EOMI Neck: non-tender Cardiovascular: normal rate Respiratory/Chest: decreased breath sounds Abdomen: tender Extremities: non-tender Edema: trace edema Neurologic: other - awake Assessment/Plan Assessment/Plan: (1) Paraplegia (2) Sacral decubitus ulcer (3) Sacral pain Patient to be continued on [place] and Dilaudid D/w Dr. Monique and he concurred. Guero Jean-Baptiste Apr 29, 2020 07:38
--- NOTE | 2020-04-29 07:47 | NUR ---
NURSE HAND-OFF: Important Events on Shift:No bleeding in the urine noted, improved. Patient Status: Diet: Soft Pending Orders: Pending Results/Labs: Pending MD notification: Latest Vital Signs: Temperature 98.3 , Pulse 71 , B/P 126 /76 , Respiratory Rate 18 , O2 SAT 96 , Room Air, O2 Flow Rate . Vital Sign Comment: Latest Bennett Fall Score: 70 Fall Risk: High Risk Safety Measures: Call light Within Reach, Bed Alarm Zone 1, Side Rails Side Rails x2, Bed position Low and Locked. Fall Precautions: Yellow Socks Yellow Gown Door Sign Patient Fall Education Report given to Jace SCHMITZ.
--- NOTE | 2020-04-29 07:51 | NUR ---
NURSE NOTES: Received report from AINSLEY Shrestha. Patient seen in bed AAOX3, bed bound, and able to make needs known. Patient is on room air, breathing is even and unlabored with no SOB noted at this time. Patient noted to have germain catheter, patent and anchored draining light yellow urine via gravity. RN educated patient on pain medication and schedule. RN also made patient aware of the use of all light for assistance when needed. Bed is locked and placed in lowest position with bed alarm on. Will continue to monitor
[2020-04-29 08:00] VITALS: BP 135/91
[2020-04-29] MEDS: Zinc Sulfate 220mg ORAL SCH (08:12)
[2020-04-29] MEDS: Ascorbic Acid 500mg tab ORAL SCH ×2 (08:13→18:29)
--- NOTE | 2020-04-29 09:22 | Urology Progress Note ---
Assessment/Plan Assessment/Plan: 1. Hematuria, resolving. 2. Pyuria, probably colonized. 3. Proteinuria. 4. Urinary retention. 5. Neurogenic bladder. 6. Hydronephrosis, which appears to be chronic. monitor clinically maintain germain, placed 04/24 hand irrigated and do PRN no active bleeding watch abx as ordered cysto electively flomax added voiding trial at some point? Subjective Allergies: Coded Allergies: No Known Allergies (Unverified , 04/23/20) Subjective all noted Objective Last 24 Hour Vital Signs Date Time Temp Pulse Resp B/P (MAP) Pulse Ox O2 Delivery O2 Flow Rate FiO2 04/29/20 08:00 98.1 80 19 135/91 (106) 98 04/29/20 04:00 98.3 71 18 126/76 (93) 96 04/29/20 00:00 98.0 69 18 114/74 (87) 96 04/28/20 21:00 Room Air 04/28/20 20:00 97.9 75 18 132/91 (105) 96 04/28/20 16:00 97.0 100 20 152/107 (122) 97 04/28/20 12:00 97.9 83 19 127/81 (96) 97 04/28/20 10:30 97.9 04/28/20 09:23 Room Air Intake and Output 04/28/20 04/29/20 19:00 07:00 Intake Total 1910.0 ml 1450.0 ml Output Total 1800 ml 1600 ml Balance 110.0 ml -150.0 ml Intake Oral 600 ml 240 ml IV Total 1310.0 ml 1210.0 ml Output Urine Total 1800 ml 1600 ml # Voids 1 # Bowel Movements 4 Microbiology Date/Time Source Procedure Growth Status 04/23/20 01:30 Rectum - Final NO CARBAPENEM-RESISTANT ENTEROBACTERI... Complete 04/23/20 01:30 Urine,Clean Catch Urine Culture - Final NO GROWTH AFTER 48 HOURS Complete 04/23/20 01:30 Nasal Nares MRSA Culture - Final NO METHICILLIN RESISTANT STAPH AUREUS... Complete Current Medications Medications (Trade) Dose Ordered Sig/Kathie Route PRN Reason Start Time Stop Time Status Last Admin Dose Admin Acetaminophen/ Hydrocodone Bitart ([place] 5/325) 1 tab Q4H PRN ORAL Breakthrough Pain 04/23/20 13:15 04/30/20 13:14 04/24/20 05:47 Ascorbic Acid (Vitamin C) 500 mg TWICE A DAY ORAL 04/24/20 18:00 05/24/20 17:59 04/29/20 08:13 Cyclobenzaprine HCl (Flexeril) 10 mg TIDPRN PRN ORAL Muscle Spasm 04/25/20 10:00 05/02/20 09:59 04/26/20 18:40 Escitalopram Oxalate (Lexapro) 10 mg DAILY ORAL 04/24/20 09:00 05/24/20 08:59 04/29/20 08:13 Hydromorphone HCl (Dilaudid) 0.5 mg Q2H PRN IVP Pain Scale (7-10) 04/27/20 17:15 05/04/20 17:14 04/29/20 06:59 Lorazepam (Ativan) 2 mg Q6H PRN ORAL For Anxiety 04/23/20 14:45 04/30/20 14:44 04/26/20 13:32 Multivitamins (Multivitamins) 1 tab DAILY ORAL 04/25/20 09:00 05/25/20 08:59 04/29/20 08:13 Piperacillin Sod/ Tazobactam Sod 3.375 gm/Sodium Chloride 110 ml @ 27.5 mls/hr Q8H IVPB 04/23/20 15:00 04/30/20 14:59 04/29/20 06:31 Risperidone (RisperDAL) 2 mg BEDTIME ORAL 04/23/20 21:00 06/07/20 20:59 04/28/20 21:20 Sodium Chloride 1,000 ml @ 100 mls/hr Q10H IV 04/23/20 13:15 05/23/20 13:14 04/29/20 08:14 Tamsulosin HCl (Flomax) 0.4 mg BEDTIME ORAL 04/28/20 21:00 05/28/20 20:59 04/28/20 21:20 Zinc Sulfate (Zinc Sulfate) 220 mg DAILY ORAL 04/25/20 09:00 05/05/20 08:59 04/29/20 08:12 Height (Feet): 5 Height (Inches): 6.00 Weight (Pounds): 132 Objective exam stable urine is less blood-tinged, clearing Santos Mccarty MD Apr 29, 2020 09:22
--- NOTE | 2020-04-29 10:25 | Surgery Progress Note ---
Surgery Progress Note Subjective Additional Comments afebrile, HD stable comfortable resting n on/v feels well tolerating diet Objective Last 24 Hour Vital Signs Date Time Temp Pulse Resp B/P (MAP) Pulse Ox O2 Delivery O2 Flow Rate FiO2 04/29/20 09:00 Room Air 04/29/20 08:00 98.1 80 19 135/91 (106) 98 04/29/20 04:00 98.3 71 18 126/76 (93) 96 04/29/20 00:00 98.0 69 18 114/74 (87) 96 04/28/20 21:00 Room Air 04/28/20 20:00 97.9 75 18 132/91 (105) 96 04/28/20 16:00 97.0 100 20 152/107 (122) 97 04/28/20 12:00 97.9 83 19 127/81 (96) 97 04/28/20 10:30 97.9 I&O Intake and Output 04/28/20 04/29/20 19:00 07:00 Intake Total 1910.0 ml 1450.0 ml Output Total 1800 ml 1600 ml Balance 110.0 ml -150.0 ml Intake Oral 600 ml 240 ml IV Total 1310.0 ml 1210.0 ml Output Urine Total 1800 ml 1600 ml # Voids 1 # Bowel Movements 4 Dressing: saturated Cardiovascular: RSR Respiratory: decreased breath sounds Abdomen: non-tender, present bowel sounds Extremities: no edema, no tenderness, no cyanosis Plan Problems: (1) Pressure ulcer Assessment & Plan: Patient identified to have multiple skin concerns upon admission. he is awake and only somewhat responsive as he chooses to be. not cooperative with exam. Right Ischial pressure ulcer stage 4 noted 2.6x2.3x1.7 undermining 3to6 o'clock 90% pink muscle and granulation [id number] yellow slough ,edges macerated. . Tx plan: Thera Honey and optifoam daily. Sacral/coccyx pressure ulcer stage 2 0.8x0.4x0.2 pink tissue no drainage noted aga wound intact Tx plan: Triad and Optifoam change q3 days and prn. Left buttock pressure ulcer stage 2 0.7x0.3x0.2 pink wound bed no drainage Tx plan: triad and optifoam change q3 days Right lateral foot pressure ulcer stage 2 2.0x2.1x0.2 wound bed pink scant serosanguineous drainage noted, aga wound dry flakey intact skin. Tx plan: triad and optifoam change q3 days Air mattress overlay placed on bed during assessment. nutritional optimization turn q2h will follow with recs thank you DAILY ESTIMATED NEEDS: Needs based on Advanced wounds/ 58.5kg 30-35 kcals/kg 7114-0860 total kcals 1.5-2 g protein/kg 88-117 g total protein 25-30 mL/kg 4176-2374 total fluid mLs NUTRITION DIAGNOSIS: Increased kcal/prot needs R/T wound healing as evidenced by pt admitted w/ advanced wounds, including stage 4 @ R buttock, stage 3 @ R lateral foot, stage 2 @ sacrum. CURRENT DIET:SOFT PO DIET RECOMMENDATIONS: Liberalized regular/ texture per BONE CRUSHER ADDITIONAL RECOMMENDATIONS: * Calibrated bedscale wt for accurate CBW * Ensure Enlive TID w/ meals added * Wound healing: Add MVI w/ min x 1, Vit C 500mg BID, ZnSO4 220mg [id number] Sebas 1pkt BID * Monitor PO intake: pt refusing meals at this time -> consider appetite stimulant * Monitor lytes, replete as needed (2) Paraplegia (3) Psychiatric follow-up (4) Gross hematuria Assessment & Plan: as per urology germain changed cont monitor abx as per pcp ABDOMEN: Liver: Unremarkable. Gallbladder and bile ducts: Unremarkable. No calcified stones. No ductal dilation. Pancreas: Unremarkable. No ductal dilation. Spleen: Unremarkable. No splenomegaly. Adrenals: Unremarkable. No mass. 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 The left kidney demonstrates compensatory hypertrophy with mild-moderate hydronephrosis. Stomach and bowel: Large volume stool in the rectal vault, measuring up to 8.8 cm, consistent with fecal impaction. Associated mild circumferential wall thickening of the rectum and distal sigmoid colon consistent with mild stercoral colitis. No perforation. Mild perirectal induration. Associated, moderate fecal retention. PELVIS: Appendix: No findings to suggest acute appendicitis. Bladder: Germain catheter within a decompressed, severely thickened urinary bladder measuring at least 1 cm in thickness. Evaluation limited as the bladder is decompressed and there is no contrast. No stones. Reproductive: Unremarkable as visualized. ABDOMEN and PELVIS: Intraperitoneal space: Unremarkable. No free air. No significant fluid collection. Bones/joints: Status post open reduction internal fixation of the left femur with a reverse intramedullary nail and proximal interlocking screw. Degenerative changes of the spine with dysplasia the lumbar spine and sacrum. No acute fracture. No dislocation. Soft tissues: Severe skin thickening with subcutaneous induration and large soft tissue ulceration throughout the inferior right gluteal soft tissues/medial proximal thigh soft tissues, consistent with high-grade decubitus ulcer. This should be correlated with physical exam and wound care. Vasculature: Unremarkable. No abdominal aortic aneurysm. Lymph nodes: Unremarkable. No enlarged lymph nodes. Other findings: Hyperdensity within the spinal canal, correlate for surgical intervention/inadvertent material. IMPRESSION: 1. Large volume stool in the rectal vault, measuring up to 8.8 cm, consistent with fecal impaction. Associated mild circumferential wall thickening of the rectum and distal sigmoid colon consistent with mild stercoral colitis. No perforation. Mild perirectal induration. Associated, moderate fecal retention. 2. Germain catheter within a decompressed, severely thickened urinary bladder measuring at least 1 cm in thickness. Evaluation limited as the bladder is decompressed and there is no contrast. 3. Status post right nephrectomy and suspected right adrenalectomy. The left kidney demonstrates compensatory hypertrophy with mild-moderate hydronephrosis. 4. Severe skin thickening with subcutaneous induration and large soft tissue ulceration throughout the inferior right gluteal soft tissues/medial proximal thigh soft tissues, consistent with high-grade decubitus ulcer. This should be correlated with physical exam and wound care. 5. Status post open reduction internal fixation of the left femur with a reverse intramedullary nail and proximal interlocking screw. 6. Hyperdensity within the spinal canal, correlate for surgical intervention/inadvertent material. (5) Complicated UTI (urinary tract infection) Parker Burr Apr 29, 2020 10:25
[2020-04-29 12:00] VITALS: BP 131/87
[2020-04-29 16:00] VITALS: BP 129/81
--- NOTE | 2020-04-29 16:12 | NUR ---
NURSE NOTES: nurse asked patient if she could collect COVID19 nasal swab on his nares, patient refused.
--- NOTE | 2020-04-29 16:20 | NUR ---
CHARGE NURSE NOTE: Pt refused Covid test collection and labs for today. notified.
--- NOTE | 2020-04-29 17:33 | NUR ---
NURSE NOTES: changed dressing of right ischial, left buttock, right lateral foot and R heel DTI as per order. Patient had moderate loose BM, pt was cleaned.
--- NOTE | 2020-04-29 19:51 | NUR ---
NURSE HAND-OFF: Important Events on Shift:[changed dressing] Patient Status: [stable] Diet: [soft] Pending Orders: [cbc, bmp, covid19 test refused] Pending Results/Labs:[] Pending MD notification:[] Latest Vital Signs: Temperature 98.8 , Pulse 83 , B/P 129 /81 , Respiratory Rate 19 , O2 SAT 98 , Room Air, O2 Flow Rate . Vital Sign Comment: [] Latest Bennett Fall Score: 70 Fall Risk: High Risk Safety Measures: Call light Within Reach, Bed Alarm Zone 1, Side Rails Side Rails x2, Bed position Low and Locked. Fall Precautions: Yellow Socks Yellow Gown Door Sign Patient Fall Education Report given to [AINSLEY Rebollar].
[2020-04-29 20:00] VITALS: BP 124/78
--- NOTE | 2020-04-29 20:00 | NUR ---
NURSE NOTES: Patient is sitting up in bed, lethargic in bed AAOX3-4, bedbound, paraplegic, able to make needs known. Patient is on room air, breathing even and unlabored, no SOB noted at this time. Patient has germain catheter, patent and anchored draining light jessica urine via gravity. RN educated patient on pain medication and schedule. Per report pt has requested pain med every 2 hours as it can be administered q2 hours. RN informed on use of call light for assistance as needed. Bed is locked in lowest position with bed alarm on. Will continue to monitor
[2020-04-29] MEDS: LORazepam 1mg tab ORAL PRN (20:35)
[2020-04-29] MEDS: Tamsulosin 0.4mg cap ORAL SCH ×2 (20:36→21:00)
--- NOTE | 2020-04-29 20:49 | NUR ---
NURSE NOTES: Pt refused medication, asked for ativan but refused. Medications were returned unopened in the pyxis, witnessed by second RN. Returned 2 mg ativan, 2 mg risperdal and tamsulosin
[2020-04-30] VITALS: BP 124/71
[2020-04-30] MEDS: Hydromorphone 0.5mg/0.5ml inj IVP PRN ×4 (01:14→08:29)
[2020-04-30 04:00] VITALS: BP 128/73
[2020-04-30] MEDS: Piperacillin/Tazobactam 3.375 GM in NS 110 ML IVPB SCH (06:23)
--- NOTE | 2020-04-30 07:19 | NUR ---
NURSE HAND-OFF: Important Events on Shift:[turned frequently, changed dressing] Patient Status: [stable] Diet: [soft] Pending Orders: [cbc, bmp, covid19 test refused] Pending Results/Labs:[cbc bmp, refused yesterday, refused all meds last night except dilaudid every 2 hours] Pending MD notification:[] Latest Vital Signs: Temperature 98.8 , Pulse 83 , B/P 129 /81 , Respiratory Rate 19 , O2 SAT 98 , Room Air, O2 Flow Rate . Vital Sign Comment: [] Latest Bennett Fall Score: 70 Fall Risk: High Risk Safety Measures: Call light Within Reach, Bed Alarm Zone 1, Side Rails Side Rails x2, Bed position Low and Locked. Fall Precautions: Yellow Socks Yellow Gown Door Sign Patient Fall Education Report given to AINSLEY Nixon
--- NOTE | 2020-04-30 07:49 | NUR ---
NURSE NOTES:AM report received. pt is awake in bed asleep. respiration is even and unlabored on room air. f/c inplace, drains bright red urine, no sediments noted, no clots noted. no acute distress noted at this time. place call light within reach, will follow plan of care.
[2020-04-30 08:00] VITALS: BP 129/75
[2020-04-30] MEDS: Zinc Sulfate 220mg ORAL SCH (08:29)
[2020-04-30] MEDS: Ascorbic Acid 500mg tab ORAL SCH (08:29)
--- NOTE | 2020-04-30 08:39 | General Progress Note ---
Subjective Date patient seen: Apr 30, 2020 Time patient seen: 07:00 - am Constitutional: Reports: no symptoms HEENT: Reports: no symptoms Cardiovascular: Reports: no symptoms Respiratory: Reports: no symptoms Gastrointestinal/Abdominal: Reports: no symptoms Genitourinary: Reports: no symptoms Neurologic/Psychiatric: Reports: no symptoms Endocrine: Reports: no symptoms Hematologic/Lymphatic: Reports: no symptoms Allergies: Coded Allergies: No Known Allergies (Unverified , 04/23/20) Subjective This is a 45 y/o male being seen on the Med/surg floor of [facility] [place] Patient is resting in bed no signs of pain or distress. No new complaints at this time, pain is at a moderate level a this time Objective Last 24 Hour Vital Signs Date Time Temp Pulse Resp B/P (MAP) Pulse Ox O2 Delivery O2 Flow Rate FiO2 04/30/20 08:00 97.7 64 18 129/75 (93) 96 04/30/20 06:54 99.0 04/30/20 04:00 98.9 68 18 128/73 (91) 97 04/30/20 01:44 99.0 04/30/20 00:00 99.0 99 18 124/71 (88) 97 04/29/20 23:35 99.0 04/29/20 21:05 99.2 04/29/20 21:00 Room Air 04/29/20 20:00 99.2 74 18 124/78 (93) 97 04/29/20 19:03 98.8 04/29/20 16:32 98.8 04/29/20 16:00 98.1 83 19 129/81 (97) 98 04/29/20 13:23 98.8 04/29/20 12:00 98.8 76 17 131/87 (102) 98 04/29/20 09:00 Room Air Intake and Output 04/29/20 04/30/20 19:00 07:00 Intake Total 500 ml Output Total 1300 ml 1500 ml Balance -800 ml -1500 ml IV Total 500 ml Output Urine Total 1300 ml 1500 ml # Voids 1 # Bowel Movements 2 Height (Feet): 5 Height (Inches): 6.00 Weight (Pounds): 132 Objective General Appearance: no apparent distress EENT: PERRL/EOMI Neck: non-tender Cardiovascular: normal rate Respiratory/Chest: decreased breath sounds Abdomen: tender Extremities: non-tender Edema: trace edema Neurologic: other - awake Assessment/Plan Assessment/Plan: (1) Paraplegia (2) Sacral decubitus ulcer (3) Sacral pain Patient to be continued on [place] and Dilaudid D/w Dr. Monique and he concurred. Guero Jean-Baptiste Apr 30, 2020 08:39
[2020-04-30] MEDS ORDERED: Hydromorphone 0.5mg/0.5ml inj SUBQ PRN (08:45)
--- NOTE | 2020-04-30 08:47 | Urology Progress Note ---
Assessment/Plan Assessment/Plan: 1. Hematuria, resolving. 2. Pyuria, probably colonized. 3. Proteinuria. 4. Urinary retention. 5. Neurogenic bladder. 6. Hydronephrosis, which appears to be chronic. monitor clinically maintain germain, placed 04/24 hand irrigated and do PRN no active bleeding watch abx as ordered cysto electively flomax added voiding trial at some point? Subjective Allergies: Coded Allergies: No Known Allergies (Unverified , 04/23/20) Subjective all noted Objective Last 24 Hour Vital Signs Date Time Temp Pulse Resp B/P (MAP) Pulse Ox O2 Delivery O2 Flow Rate FiO2 04/30/20 08:00 97.7 64 18 129/75 (93) 96 04/30/20 06:54 99.0 04/30/20 04:00 98.9 68 18 128/73 (91) 97 04/30/20 01:44 99.0 04/30/20 00:00 99.0 99 18 124/71 (88) 97 04/29/20 23:35 99.0 04/29/20 21:05 99.2 04/29/20 21:00 Room Air 04/29/20 20:00 99.2 74 18 124/78 (93) 97 04/29/20 19:03 98.8 04/29/20 16:32 98.8 04/29/20 16:00 98.1 83 19 129/81 (97) 98 04/29/20 13:23 98.8 04/29/20 12:00 98.8 76 17 131/87 (102) 98 04/29/20 09:00 Room Air Intake and Output 04/29/20 04/30/20 19:00 07:00 Intake Total 500 ml Output Total 1300 ml 1500 ml Balance -800 ml -1500 ml IV Total 500 ml Output Urine Total 1300 ml 1500 ml # Voids 1 # Bowel Movements 2 Microbiology Date/Time Source Procedure Growth Status 04/23/20 01:30 Rectum - Final NO CARBAPENEM-RESISTANT ENTEROBACTERI... Complete 04/23/20 01:30 Urine,Clean Catch Urine Culture - Final NO GROWTH AFTER 48 HOURS Complete 04/23/20 01:30 Nasal Nares MRSA Culture - Final NO METHICILLIN RESISTANT STAPH AUREUS... Complete Current Medications Medications (Trade) Dose Ordered Sig/Kathie Route PRN Reason Start Time Stop Time Status Last Admin Dose Admin Acetaminophen/ Hydrocodone Bitart ([place] 5/325) 1 tab Q4H PRN ORAL Breakthrough Pain 04/23/20 13:15 04/30/20 13:14 04/24/20 05:47 Ascorbic Acid (Vitamin C) 500 mg TWICE A DAY ORAL 04/24/20 18:00 05/24/20 17:59 04/30/20 08:29 Cyclobenzaprine HCl (Flexeril) 10 mg TIDPRN PRN ORAL Muscle Spasm 04/25/20 10:00 05/02/20 09:59 04/26/20 18:40 Escitalopram Oxalate (Lexapro) 10 mg DAILY ORAL 04/24/20 09:00 05/24/20 08:59 04/30/20 08:29 Hydromorphone HCl (Dilaudid) 0.5 mg Q2H PRN SUBQ Pain Scale (7-10) 04/30/20 08:45 05/04/20 17:14 Lorazepam (Ativan) 2 mg Q6H PRN ORAL For Anxiety 04/23/20 14:45 04/30/20 14:44 04/26/20 13:32 Multivitamins (Multivitamins) 1 tab DAILY ORAL 04/25/20 09:00 05/25/20 08:59 04/30/20 08:29 Piperacillin Sod/ Tazobactam Sod 3.375 gm/Sodium Chloride 110 ml @ 27.5 mls/hr Q8H IVPB 04/23/20 15:00 04/30/20 14:59 04/30/20 06:23 Risperidone (RisperDAL) 2 mg BEDTIME ORAL 04/23/20 21:00 06/07/20 20:59 04/28/20 21:20 Sodium Chloride 1,000 ml @ 100 mls/hr Q10H IV 04/23/20 13:15 05/23/20 13:14 04/30/20 06:23 Tamsulosin HCl (Flomax) 0.4 mg BEDTIME ORAL 04/28/20 21:00 05/28/20 20:59 04/28/20 21:20 Zinc Sulfate (Zinc Sulfate) 220 mg DAILY ORAL 04/25/20 09:00 05/05/20 08:59 04/30/20 08:29 Height (Feet): 5 Height (Inches): 6.00 Weight (Pounds): 132 Objective exam stable urine is less blood-tinged, clearing Santos Mccarty MD Apr 30, 2020 08:47
--- NOTE | 2020-04-30 09:19 | General Progress Note ---
Subjective Allergies: Coded Allergies: No Known Allergies (Unverified , 04/23/20) Subjective c/o hematuria better bed ridden more awake drinking liqiuds Objective Last 24 Hour Vital Signs Date Time Temp Pulse Resp B/P (MAP) Pulse Ox O2 Delivery O2 Flow Rate FiO2 04/30/20 08:00 97.7 64 18 129/75 (93) 96 04/30/20 06:54 99.0 04/30/20 04:00 98.9 68 18 128/73 (91) 97 04/30/20 01:44 99.0 04/30/20 00:00 99.0 99 18 124/71 (88) 97 04/29/20 23:35 99.0 04/29/20 21:05 99.2 04/29/20 21:00 Room Air 04/29/20 20:00 99.2 74 18 124/78 (93) 97 04/29/20 19:03 98.8 04/29/20 16:32 98.8 04/29/20 16:00 98.1 83 19 129/81 (97) 98 04/29/20 13:23 98.8 04/29/20 12:00 98.8 76 17 131/87 (102) 98 l Intake and Output 04/29/20 04/30/20 19:00 07:00 Intake Total 500 ml Output Total 1300 ml 1500 ml Balance -800 ml -1500 ml IV Total 500 ml Output Urine Total 1300 ml 1500 ml # Voids 1 # Bowel Movements 2 Height (Feet): 5 Height (Inches): 6.00 Weight (Pounds): 132 General Appearance: alert Neck: supple Cardiovascular: regular rhythm Respiratory/Chest: normal breath sounds Abdomen: non tender, soft Assessment/Plan Assessment/Plan: hematuria improving uti paraplegia agitation failure of thrive add magcee urology eval cont iv abx dc ivf id eval refusing covid test discussed with cm dc [facility] Joao Lancaster MD Apr 30, 2020 09:19
--- NOTE | 2020-04-30 10:45 | NUR ---
NURSE NOTES:Attempted to do rapid covid-19 swab as ordered by MD. patient refuses. educated patient the purpose and benefits of covid-19 swab. patient is noncompliant at this time. Patient states "I am allergic to it." Dr. Jean-Baptiste made aware. no new order.
--- NOTE | 2020-04-30 11:22 | NUR ---
*-*DISCHARGE PLANNED*-* PATIENT HAS BEEN REFERRED ACCEPTED AND WILL BE DISCHARGED BACK TO: [facility] P: [phone] for nurse to nurse report ROOM# 120. [facility] SET FOR 1PM S/W [facility] [id number].
--- NOTE | 2020-04-30 12:23 | NUR ---
NURSE NOTES:RN and SENIOR BIOSTATISTICIAN/GROUP LEADER offered to clean and dry patient before discharge. patient refuses. RN offered to take pictures of wound on sacral area. patient remains noncompliant. patient states "I want my Dilaudid pain medication, that is all I want now." explained to patient that Dilaudid has been discontinued and there is order to discharged back to the SNF. Patient refuses to allow RN clean him. RN asked patient if he would like to clean himself. patient refuses. encouraged patient to call for any him. call light is within reach. Addendum: 04/30/20 at 1401 by Hussain Putnam RN NURSE NOTES:RN and SENIOR BIOSTATISTICIAN/GROUP LEADER offered to clean and dry patient before discharge. patient refuses. RN offered to take pictures of wound on sacral area. patient remains noncompliant. patient states "I want my Dilaudid pain medication, that is all I want now." explained to patient that Dilaudid has been discontinued and there is order to discharged back to the SNF. Patient refuses to allow RN clean him. RN asked patient if he would like to clean himself. patient refuses. encouraged patient to call for any help. call light is within reach.
[2020-04-30] MEDS ORDERED: 1/2 NS 1000ml IV ONE (13:11)
--- NOTE | 2020-04-30 13:15 | NUR ---
NURSE NOTES:patient is discharged to [facility] at this time. refuses to sign discharge paper and inventory paper. patient states "give me my bag and leave me alone." noted one pair of sweat pant and one black sweater in a white plastic bag. bag given to patient. patient is alert, awake and verbally responsive at this time. IV site and name band removed. patient is transported in a gurney [facility] in company of two marine equipment engineer.
--- NOTE | 2020-04-30 14:48 | Surgery Progress Note ---
Surgery Progress Note Subjective Additional Comments ready for d/c comfortable no n/v Objective Last 24 Hour Vital Signs Date Time Temp Pulse Resp B/P (MAP) Pulse Ox O2 Delivery O2 Flow Rate FiO2 04/30/20 09:00 Room Air 04/30/20 08:00 97.7 64 18 129/75 (93) 96 04/30/20 06:54 99.0 04/30/20 04:00 98.9 68 18 128/73 (91) 97 04/30/20 01:44 99.0 04/30/20 00:00 99.0 99 18 124/71 (88) 97 04/29/20 23:35 99.0 04/29/20 21:05 99.2 04/29/20 21:00 Room Air 04/29/20 20:00 99.2 74 18 124/78 (93) 97 04/29/20 19:03 98.8 04/29/20 16:32 98.8 04/29/20 16:00 98.1 83 19 129/81 (97) 98 I&O Intake and Output 04/29/20 04/30/20 19:00 07:00 Intake Total 500 ml Output Total 1300 ml 1500 ml Balance -800 ml -1500 ml IV Total 500 ml Output Urine Total 1300 ml 1500 ml # Voids 1 # Bowel Movements 2 Dressing: saturated Cardiovascular: RSR Respiratory: decreased breath sounds Abdomen: non-tender, present bowel sounds Extremities: no edema, no tenderness, no cyanosis Plan Problems: (1) Pressure ulcer Assessment & Plan: Patient identified to have multiple skin concerns upon admission. he is awake and only somewhat responsive as he chooses to be. not cooperative with exam. Right Ischial pressure ulcer stage 4 noted 2.6x2.3x1.7 undermining 3to6 o'clock 90% pink muscle and granulation [id number]% yellow slough ,edges macerated. . Tx plan: Thera Honey and optifoam daily. Sacral/coccyx pressure ulcer stage 2 0.8x0.4x0.2 pink tissue no drainage noted aga wound intact Tx plan: Triad and Optifoam change q3 days and prn. Left buttock pressure ulcer stage 2 0.7x0.3x0.2 pink wound bed no drainage Tx plan: triad and optifoam change q3 days Right lateral foot pressure ulcer stage 2 2.0x2.1x0.2 wound bed pink scant serosanguineous drainage noted, aga wound dry flakey intact skin. Tx plan: triad and optifoam change q3 days Air mattress overlay placed on bed during assessment. nutritional optimization turn q2h will follow with recs thank you DAILY ESTIMATED NEEDS: Needs based on Advanced wounds/ 58.5kg 30-35 kcals/kg 7518-8817 total kcals 1.5-2 g protein/kg 88-117 g total protein 25-30 mL/kg 0384-3057 total fluid mLs NUTRITION DIAGNOSIS: Increased kcal/prot needs R/T wound healing as evidenced by pt admitted w/ advanced wounds, including stage 4 @ R buttock, stage 3 @ R lateral foot, stage 2 @ sacrum. CURRENT DIET:SOFT PO DIET RECOMMENDATIONS: Liberalized regular/ texture per SENIOR ACCOUNTANT ANALYST ADDITIONAL RECOMMENDATIONS: * Calibrated bedscale wt for accurate CBW * Ensure Enlive TID w/ meals added * Wound healing: Add MVI w/ min x 1, Vit C 500mg BID, ZnSO4 220mg [id number] Sebas 1pkt BID * Monitor PO intake: pt refusing meals at this time -> consider appetite stimulant * Monitor lytes, replete as needed (2) Paraplegia (3) Psychiatric follow-up (4) Gross hematuria Assessment & Plan: as per urology germain changed cont monitor abx as per pcp ABDOMEN: Liver: Unremarkable. Gallbladder and bile ducts: Unremarkable. No calcified stones. No ductal dilation. Pancreas: Unremarkable. No ductal dilation. Spleen: Unremarkable. No splenomegaly. Adrenals: Unremarkable. No mass. 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 The left kidney demonstrates compensatory hypertrophy with mild-moderate hydronephrosis. Stomach and bowel: Large volume stool in the rectal vault, measuring up to 8.8 cm, consistent with fecal impaction. Associated mild circumferential wall thickening of the rectum and distal sigmoid colon consistent with mild stercoral colitis. No perforation. Mild perirectal induration. Associated, moderate fecal retention. PELVIS: Appendix: No findings to suggest acute appendicitis. Bladder: Germain catheter within a decompressed, severely thickened urinary bladder measuring at least 1 cm in thickness. Evaluation limited as the bladder is decompressed and there is no contrast. No stones. Reproductive: Unremarkable as visualized. ABDOMEN and PELVIS: Intraperitoneal space: Unremarkable. No free air. No significant fluid collection. Bones/joints: Status post open reduction internal fixation of the left femur with a reverse intramedullary nail and proximal interlocking screw. Degenerative changes of the spine with dysplasia the lumbar spine and sacrum. No acute fracture. No dislocation. Soft tissues: Severe skin thickening with subcutaneous induration and large soft tissue ulceration throughout the inferior right gluteal soft tissues/medial proximal thigh soft tissues, consistent with high-grade decubitus ulcer. This should be correlated with physical exam and wound care. Vasculature: Unremarkable. No abdominal aortic aneurysm. Lymph nodes: Unremarkable. No enlarged lymph nodes. Other findings: Hyperdensity within the spinal canal, correlate for surgical intervention/inadvertent material. IMPRESSION: 1. Large volume stool in the rectal vault, measuring up to 8.8 cm, consistent with fecal impaction. Associated mild circumferential wall thickening of the rectum and distal sigmoid colon consistent with mild stercoral colitis. No perforation. Mild perirectal induration. Associated, moderate fecal retention. 2. Germain catheter within a decompressed, severely thickened urinary bladder measuring at least 1 cm in thickness. Evaluation limited as the bladder is decompressed and there is no contrast. 3. Status post right nephrectomy and suspected right adrenalectomy. The left kidney demonstrates compensatory hypertrophy with mild-moderate hydronephrosis. 4. Severe skin thickening with subcutaneous induration and large soft tissue ulceration throughout the inferior right gluteal soft tissues/medial proximal thigh soft tissues, consistent with high-grade decubitus ulcer. This should be correlated with physical exam and wound care. 5. Status post open reduction internal fixation of the left femur with a reverse intramedullary nail and proximal interlocking screw. 6. Hyperdensity within the spinal canal, correlate for surgical intervention/inadvertent material. (5) Complicated UTI (urinary tract infection) Parker Burr Apr 30, 2020 14:48
--- NOTE | 2020-04-30 16:23 | NUR ---
INSURANCE CLINICALS/DC INSTRUCTIONS () FAXED TO [facility] [phone]
--- NOTE | 2020-04-30 18:36 | Psychiatric Progress Note ---
Psychiatry Progress Note Psychiatry Progress Note Subjective 04/29/20 Medications the pt is the same co pain Neurological/Psychiatric: Reports: anxiety, depressed, emotional problems Allergies: Coded Allergies: No Known Allergies (Unverified , 04/23/20) Objective Data Height (Feet): 5 Height (Inches): 6.00 Weight (Pounds): 132 General Appearance: WD/WN, no apparent distress, alert Appearance: no abnormalities noted Behavior Mannerisms: good eye contact Mental Status Exam - Affect: blunted Mental Status Exam - Mood: depressed, irritable Mental Status Exam - Suicidal: not present Additional Comments: alert, unable to communicate and evaluate him for mental status. Assessment/Plan [place] I: [place] I Psychotic disorder, not otherwise specified. Depressive disorder, rule out opiate pain medication dependence. [place] II Deferred. [place] III As above. [place] IV Low. [place] V 25 PLAN: 1. We will start the patient on Lexapro 10 mg in the morning. 2. Risperidone 2 mg at bedtime. 3. Provide the patient with reality orientation and supportive therapy. Status: stable, progressing Status Narrative [place] I Psychotic disorder, not otherwise specified. Depressive disorder, rule out opiate pain medication dependence. [place] II Deferred. [place] III As above. [place] IV Low. [place] V 25 PLAN: 1. We will start the patient on Lexapro 10 mg in the morning. 2. Risperidone 2 mg at bedtime. 3. Provide the patient with reality orientation and supportive therapy. Assessment/Plan: [place] I Psychotic disorder, not otherwise specified. Depressive disorder, rule out opiate pain medication dependence. [place] II Deferred. [place] III As above. [place] IV Low. [place] V 25 PLAN: 1. We will start the patient on Lexapro 10 mg in the morning. 2. Risperidone 2 mg at bedtime. 3. Provide the patient with reality orientation and supportive therapy. Susan Meza MD Apr 30, 2020 18:36
--- NOTE | 2020-05-01 07:59 | Discharge Summary ---
Discharge Summary Discharge Summary _ DATE OF ADMISSION: 04/23/2020 DATE OF DISCHARGE: 04/30/2020 DISCHARGED BY: Dr. Lancaster REASON FOR ADMISSION: 45 years old male with past medical history of paraplegia, diabetes mellitus type 2, hypertension, chronic pain syndrome, chronic indwelling catheter , presented with chief complaint of hematuria for 1 day. Nursing staff also reported intractable pain. Patient by himself was unable to provide any history . No reported fever and chills. Patient was prior started on Macrobid for UTI. Upon evaluation vital signs were stable. CT of the abdomen and pelvis revealed Gaviria catheter within a decompressed severely thickened urinary bladder , measuring at least 1 cm thickness. Status post right nephrectomy and suspected right adrenalectomy. Left kidney demonstrated compensatory hypertrophy with a mild to moderate hydronephrosis. Decubitus ulcer right gluteal area. Large volume of stool in the rectal vault , associated wall thickening of the rectum and distal sigmoid colon , consistent with a mild stercoral colitis. No perforation. Associated moderate fecal retention. Urinalysis revealed +4 protein, +5 blood, borderline pyuria and moderate bacteria. Gross hematuria noted. BUN 19, creatinine 1.3. Stable electrolytes Albumin 3.1. No leukocytosis, stable hemoglobin, hematocrit and platelet count. In emergency department patient received empiric antibiotic, analgesic, fluids and admitted for further management. CONSULTANTS: urologist Dr. Mccarty general surgery Dr. Hong pain specialist Dr. Monique psychiatrist Dr. Meza HOSPITAL COURSE: Patient admitted to medical surgical floor. Patient started on empiric antibiotics for UTI. Urologist seen patient for gross hematuria . Patient with a chronic Gaviria catheter , which was irrigated and initially was draining well. A new Gaviria was placed on 04/24 by urologist, since old catheter was not draining well. It was hand irrigated . Flomax was added to existing medication regimen. Renal function remained stable. Patient had a solitary kidney with mild to moderate hydronephrosis , which appeared to be chronic, secondary to reflux and should be closely monitored. Urine culture was negative. However patient treated for complicated urinary tract infection . Given prior treatment with Macrobid, urine culture may not show any growth at this time. Patient received 7 days of Zosyn . while in the hospital. No fever, no leukocytosis . Hematuria resolved Urologist recommended elective cystoscopy. Hemoglobin and hematocrit were closely monitored with goal to keep hemoglobin above 7 and remained at baseline. Prior to discharge hemoglobin 11.6, hematocrit 35.8 Wound care for present on admission decubitus ulcers provided as per surgeon recommendation ; continue wound care at the facility. Pain management was addressed as per pain specialist recommendation Supportive care provided. Protein supplements provided as per registered dietitian recommendation. Bowel regimen instituted. Psychiatrist closely followed. Per psychiatrist patient had depressive disorder and psychotic disorder. Psychiatric medication regimen was optimized . Patient was provided with reality orientation and supportive therapy. Please stabilized and was [facility]. FINAL DIAGNOSES: Gross hematuria Complicated UTI Paraplegia Right ischial pressure ulcer stage IV , sacral/coccyx pressure ulcer stage II, both POA Hydronephrosis, likely chronic Urinary retention Neurogenic bladder Proteinuria Sacral pain due to sacral ulcer Psychotic disorder Depressive disorder Severe malnutrition DISCHARGE MEDICATIONS: See Medication Reconciliation list. DISCHARGE INSTRUCTIONS: [facility] Follow up with medical doctor at the facility. I have been assigned to dictate discharge summary for this account. I was not involved in the patient's management. Tabitha Palomo NP May 01, 2020 07:59
--- NOTE | 2020-05-01 13:36 | NUR ---
INSURANCE DC SUMMARY FAXED TO [facility] [phone] [facility] [phone]
== END 2020-04-30 13:12 | DRG 698 ==
LOC: EDBD 01:17 → EMR 01:41 → 4E 02:42 → OBSVTOIN 02:42 → EDBEDREQ 03:13 → 4E 05:21
DX: T83.511A Infection and inflammatory reaction due to indwelling urethral catheter, initial encounter (principal); L89.314 Pressure ulcer of right buttock, stage 4; L89.893 Pressure ulcer of other site, stage 3; E43 Unspecified severe protein-calorie malnutrition; G82.20 Paraplegia, unspecified; N13.30 Unspecified hydronephrosis; F11.20 Opioid dependence, uncomplicated; N39.0 Urinary tract infection, site not specified; L89.152 Pressure ulcer of sacral region, stage 2; G89.4 Chronic pain syndrome; R31.0 Gross hematuria; K40.90 Unilateral inguinal hernia, without obstruction or gangrene, not specified as recurrent; Y84.6 Urinary catheterization as the cause of abnormal reaction of the patient, or of later complication, without mention of misadventure at the time of the procedure; R33.9 Retention of urine, unspecified; N31.9 Neuromuscular dysfunction of bladder, unspecified; L89.322 Pressure ulcer of left buttock, stage 2; L89.892 Pressure ulcer of other site, stage 2; F29 Unspecified psychosis not due to a substance or known physiological condition; E11.9 Type 2 diabetes mellitus without complications; M24.572 Contracture, left ankle; M24.571 Contracture, right ankle; I10 Essential (primary) hypertension; F31.9 Bipolar disorder, unspecified; R13.10 Dysphagia, unspecified; E78.5 Hyperlipidemia, unspecified; Z68.20 Body mass index [BMI] 20.0-20.9, adult
CPT/HCPCS: 36415; 51702; 74176; 80053; 81003; 83690; 85025; 87081; 87086; 96360; 96361; 96365; 96374; 96375; 99285; J7030; J8499